=== PATIENT | female | born 1945 | race Hispanic/Latino ===

== ENCOUNTER 2017-09-14 16:37 | Observation (INO) | payer MEDICARE, OTHER ==
--- OUTSIDE RECORDS SUMMARY | 2017-09-14 16:38 | XMS REPORT | Clinical Summary ---
:1945 Author Organization [facility] Address [address] [address] Care Team Providers Name Role Phone Asked, No Pcp Primary Care Provider Unavailable Allergies Not on File Current Medications Not on file Active Problems Not on file Social History Tobacco Use Types Packs/Day Years Used Date Never Assessed Sex Assigned at Date Recorded Not on file Last Filed Vital Signs Not on file Plan of Treatment Health Maintenance Due Date Last Done Comments COLONOSCOPY 1997 MAMMOGRAM 1997 ZOSTER VACCINE 2007 PNEUMOCOCCAL POLYSACCHARIDE VACCINE AGE 65 AND OVER 2012 PNEUMOCOCCAL-13 2012 INFLUENZA VACCINE 01/25/2017 05/07/2008 Results Not on fileafter 09/13/2016 Insurance Payer Benefit Plan / Group Subscriber ID Type Phone Address UHC MEDICARE AARP MEDICARE COMPLETE [facility] xxxxxxxxx O Work: Gustavo AZEB DOOLEY [phone] [phone] Home:
--- OUTSIDE RECORDS SUMMARY | 2017-09-14 16:39 | XMS REPORT ---
:1945 Author Organization [facility] Address [address] [place] [address] Dr. Gao [address] [place] [address] Care Team Providers Name Role Phone LALI MONTEJO Unavailable Unavailable INDIGO RAMOS Unavailable Unavailable Problems This patient has no known problems. Allergies, Adverse Reactions, Alerts This patient has no known allergies or adverse reactions. Medications This patient has no known medications. Results Test Description Test Time Test Comments Text Results Atomic Results Result Comments T4 2017-09-14 14:33:00 Test Item Value Reference Range Comments T4 TOTAL (BEAKER) (test djjt=828) 4.6 ug/dL 4.9-11.7 [id number] 14:33:00 Test Item Value Reference Range Comments THYROID STIMULATING HORMONE (BEAKER) (test 3.68 uIU/mL 0.35-4.94 kxms=355) [id number] 14:33:00 Test Item Value Reference Range Comments T3 TOTAL (BEAKER) (test woba=966) 51 ng/dL 48-159 VITAMIN D, [id number] 12:10:00 Test Item Value Reference Range Comments VITAMIN D 25-OH (BEAKER) (test gxnk=7713) 4.6 ng/mL 6.6-49.9 Effective 04/06/2017: Reference Range ChangeNew: 6.6-49.9 ng/mL Previous: 13.0 -47.8 ng/mLRecommended Vitamin D Target Range: 30.0-40.0 ng/mLCRYPTOCOCCAL [id number] 12:09:00 Test Item Value Reference Range Comments CRYPTOCOCCAL ANTIGEN, SERUM (BEAKER) (test Negative Negative, Interference joel=9534) [id number] 12:08:00 Test Item Value Reference Range Comments RPR SCREEN (BEAKER) (test zfdp=576) Nonreactive Nonreactive CARCINOEMBRYONIC ANTIGEN (CEA)2017-09-14 12:01:00 Test Item Value Reference Range Comments CARCINOEMBRYONIC ANTIGEN (BEAKER) (test ovbv=737) 12.7 ng/mL 0.0-5.0 [id number] 12:01:00 Test Item Value Reference Range Comments FERRITIN (BEAKER) (test ckzu=736) 217 ng/mL 5-275 BLOOD GAS, [id number] 10:35:00 Test Item Value Reference Range Comments PH ARTERIAL (BEAKER) (test onnn=565) 7.49 7.35-7.45 PCO2 ARTERIAL (BEAKER) (test smsz=537) 26 mmHg 35-45 PO2 ARTERIAL (BEAKER) (test bvtf=523) 121 mmHg 80-90 O2 SATURATION ARTERIAL (BEAKER) (test tccv=542) 98.7 % 96.0-97.0 HCO3 ARTERIAL (BEAKER) (test fvbj=261) 20 mmol/L 21-29 BASE EXCESS ARTERIAL (BEAKER) (test gcbv=995) -2.9 mmol/L -2.0-3.0 PATIENT TEMPERATURE (BEAKER) (test qwvo=3357) 37.0 C FIO2 (BEAKER) (test auiz=2035) 21.0 % COMPREHENSIVE METABOLIC [id number] 10:31:00 Test Item Value Reference Range Comments TOTAL PROTEIN (BEAKER) 7.4 gm/dL 6.0-8.3 (test qhym=390) ALBUMIN (BEAKER) (test 2.2 g/dL 3.5-5.0 bmuj=0693) ALKALINE PHOSPHATASE 72 U/L 40-150 (BEAKER) (test oofv=203) BILIRUBIN TOTAL (BEAKER) 1.2 mg/dL 0.2-1.2 (test grnx=381) SODIUM (BEAKER) (test 133 meq/L 136-145 pfsb=269) POTASSIUM (BEAKER) (test 4.8 meq/L 3.5-5.1 tptp=541) CHLORIDE (BEAKER) (test 105 meq/L 98-107 icey=913) CO2 (BEAKER) (test 18 meq/L 22-29 jytn=484) BLOOD UREA NITROGEN 21 mg/dL 7-21 (BEAKER) (test xbzf=926) CREATININE (BEAKER) (test 1.86 mg/dL 0.57-1.25 lcnc=858) GLUCOSE RANDOM (BEAKER) 87 mg/dL 70-105 (test dgjt=029) CALCIUM (BEAKER) (test 8.2 mg/dL 8.4-10.2 hfka=888) AST (SGOT) (BEAKER) (test 40 U/L 5-34 teij=911) ALT (SGPT) (BEAKER) (test 14 U/L 6-55 vszu=326) EGFR (BEAKER) (test 27 mL/min/1.73 sq m ESTIMATED GFR IS NOT xsdv=0621) ACCURATE CREATININE CLEARANCE IN PREDICTING GLOMERULAR FILTRATION RATE. ESTIMATED GFR IS NOT APPLICABLE FOR DIALYSIS PATIENTS. [id number] 10:24:00 Test Item Value Reference Range Comments TRANSFERRIN (BEAKER) (test yddu=575) 97 mg/dL 174-382 IRON, TIBC, % SAT. (WITHOUT FERRITIN)2017-09-14 10:24:00 Test Item Value Reference Range Comments IRON (BEAKER) (test bskl=001) 70 ug/dL 40-160 TOTAL IRON BINDING CAPACITY (BEAKER) (test 121 ug/dL 250-450 jnct=716) IRON % SATURATION (2) (BEAKER) (test pkhr=1020) 58 % 20-55 [id number] 10:22:00 Test Item Value Reference Range Comments ETHANOL (BEAKER) (test gcfq=853) < mg/dL <=10 URIC [id number] 10:15:00 Test Item Value Reference Range Comments URIC ACID (BEAKER) (test jobo=248) 14.8 mg/dL 2.6-7.2 [id number] 10:15:00 Test Item Value Reference Range Comments MAGNESIUM (BEAKER) (test ucgd=244) 1.7 mg/dL 1.6-2.6 [id number] 10:15:00 Test Item Value Reference Range Comments PHOSPHORUS (BEAKER) (test lkgg=844) 3.3 mg/dL 2.3-4.7 LIPID [id number] 10:15:00 Test Item Value Reference Range Comments TRIGLYCERIDES (BEAKER) (test hvxe=284) 64 mg/dL CHOLESTEROL (BEAKER) (test yial=984) 87 mg/dL HDL CHOLESTEROL (BEAKER) (test ibff=558) 20 mg/dL LDL CHOLESTEROL CALCULATED (BEAKER) (test ffox=477) 54 mg/dL Triglyceride Reference Range: Low Risk <150 Borderline 150- 199 High Risk 200-499 Very High Risk >=500Cholesterol Reference Range: Low Risk <200 Borderline 200-239 High Risk > 240HDL Cholesterol Reference Range: Low Risk >=60 High Risk <40LDL Cholesterol Reference Range: Optimal <100 Near Optimal 100-129 Borderline 130-159 High 160-189 Very High >=190BILIRUBIN, [id number] 10:15:00 Test Item Value Reference Range Comments BILIRUBIN DIRECT (BEAKER) (test qaaj=760) 0.7 mg/dL 0.1-0.5 GAMMA GLUTAMYL TRANSFERASE (GGT)2017-09-14 10:15:00 Test Item Value Reference Range Comments GAMMA GLUTAMYL TRANSFERASE (BEAKER) (test xzzd=550) 24 U/L 9-64 HEPATITIS B CORE ANTIBODY, [id number] 10:11:00 Test Item Value Reference Range Comments HEPATITIS B CORE IGM ANTIBODY (BEAKER) (test Nonreactive Nonreactive wuxf=339) HEPATITIS A ANTIBODY, [id number] 10:11:00 Test Item Value Reference Range Comments HEPATITIS A IGM ANTIBODY (BEAKER) (test Nonreactive Nonreactive oqjj=999) HIV-1 ANTIGEN WITH HIV-1/2 [id number] 10:11:00 Test Item Value Reference Range Comments HIV-1 ANTIGEN WITH HIV 1\T\2 ANTIBODY (2) Nonreactive Nonreactive (BEAKER) (test adwv=6186) [id number] 09:35:00 Test Item Value Reference Range Comments FIBRINOGEN LEVEL (BEAKER) (test zldn=631) 130 mg/dl 225-434 CALCIUM, [id number] 09:32:00 Test Item Value Reference Range Comments CALCIUM IONIZED (BEAKER) (test hehb=939) 0.99 mmol/L 1.12-1.27 PH, BLOOD (BEAKER) (test rtdd=8535) 7.40 PROTHROMBIN TIME/[id number] 09:30:00 Test Item Value Reference Range Comments PROTIME (BEAKER) (test zmrt=893) 20.3 seconds 11.7-14.7 INR (BEAKER) (test ywpn=407) 1.7 <=5.9 RECOMMENDED COUMADIN/WARFARIN INR THERAPY RANGESSTANDARD DOSE: 2.0 - 3.0 Includes: PROPHYLAXIS forvenous thrombosis, systemic embolization; TREATMENT for venous thrombosis and/or pulmonary embolus.HIGH RISK: Target INR is 2.5-3.5 for patients with mechanical heart valves.[id number] 09:30:00 Test Item Value Reference Range Comments PARTIAL THROMBOPLASTIN TIME (BEAKER) (test 39.5 seconds 22.5-36.0 tzzv=512) CBC W/PLT COUNT & AUTO [id number] 09:29:00 Test Item Value Reference Range Comments WHITE BLOOD CELL COUNT (BEAKER) (test afpl=704) 4.7 K/ L 3.5-10.5 RED BLOOD CELL COUNT (BEAKER) (test ljli=568) 2.46 M/ L 3.93-5.22 HEMOGLOBIN (BEAKER) (test jquf=799) 8.2 GM/DL 11.2-15.7 HEMATOCRIT (BEAKER) (test lrve=339) 23.9 % 34.1-44.9 MEAN CORPUSCULAR VOLUME (BEAKER) (test ufmu=105) 97.2 fL 79.4-94.8 MEAN CORPUSCULAR HEMOGLOBIN (BEAKER) (test 33.3 pg 25.6-32.2 ixub=357) MEAN CORPUSCULAR HEMOGLOBIN CONC (BEAKER) (test 34.3 GM/DL 32.2-35.5 ecyg=914) RED CELL DISTRIBUTION WIDTH (BEAKER) (test 19.0 % 11.7-14.4 aztb=495) PLATELET COUNT (BEAKER) (test yclz=855) 136 K/CU MM 150-450 MEAN PLATELET VOLUME (BEAKER) (test yqnf=162) 11.3 fL 9.4-12.3 NUCLEATED RED BLOOD CELLS (BEAKER) (test 0 /100 WBC 0-0 qwau=776) NEUTROPHILS RELATIVE PERCENT (BEAKER) (test 56 % amiw=042) LYMPHOCYTES RELATIVE PERCENT (BEAKER) (test 32 % pevu=942) MONOCYTES RELATIVE PERCENT (BEAKER) (test 9 % njap=370) EOSINOPHILS RELATIVE PERCENT (BEAKER) (test 2 % tyrp=598) BASOPHILS RELATIVE PERCENT (BEAKER) (test 1 % ixyz=751) NEUTROPHILS ABSOLUTE COUNT (BEAKER) (test 2.64 K/ L 1.56-6.13 jsit=977) LYMPHOCYTES ABSOLUTE COUNT (BEAKER) (test 1.48 K/ L 1.18-3.74 jmxj=047) MONOCYTES ABSOLUTE COUNT (BEAKER) (test 0.40 K/ L 0.24-0.36 kcnl=679) EOSINOPHILS ABSOLUTE COUNT (BEAKER) (test 0.10 K/ L 0.04-0.36 rfxa=334) BASOPHILS ABSOLUTE COUNT (BEAKER) (test 0.06 K/ L 0.01-0.08 upox=859) IMMATURE GRANULOCYTES-RELATIVE PERCENT (BEAKER) 0 % 0-1 (test rjuk=8433) JEFF TITER AND [id number] 14:15:00 Test Item Value Reference Range Comments JEFF TITER (BEAKER) (test zhsl=4952) >=:2560 JEFF PATTERN (BEAKER) (test gxer=2886) Homogeneous ANTI-NUCLEAR ANTIBODY (JEFF)2017-08-18 14:14:00 Test Item Value Reference Range Comments ANTI-NUCLEAR ANTIBODY (JEFF) (BEAKER) (test Positive Negative wmiv=737) HEPATITIS B SURFACE [id number] 19:32:00 Test Item Value Reference Range Comments HEPATITIS B SURFACE ANTIBODY (BEAKER) (test < mIU/mL <8.0 almm=980) HEPATITIS A ANTIBODY, [id number] 19:32:00 Test Item Value Reference Range Comments HEPATITIS A IGG ANTIBODY (BEAKER) (test oviq=4487) Reactive Nonreactive HEPATITIS B CORE ANTIBODY, [id number] 19:31:00 Test Item Value Reference Range Comments HEPATITIS B CORE TOTAL ANTIBODY (BEAKER) (test Nonreactive Nonreactive zgzj=266) HEPATITIS B SURFACE [id number] 19:28:00 Test Item Value Reference Range Comments HEPATITIS B SURFACE ANTIGEN (2) (BEAKER) (test Nonreactive Nonreactive wnit=3182) HEPATITIS C [id number] 19:28:00 Test Item Value Reference Range Comments HEPATITIS C ANTIBODY (BEAKER) (test ldpp=551) Nonreactive Nonreactive IRON, TIBC, % SAT. (WITHOUT FERRITIN)2017-08-17 19:20:00 Test Item Value Reference Range Comments IRON (BEAKER) (test eoan=866) 51 ug/dL 40-160 TOTAL IRON BINDING CAPACITY (BEAKER) (test 118 ug/dL 250-450 zmcb=284) IRON % SATURATION (2) (BEAKER) (test tpxu=9604) 43 % 20-55 ALPHA FETOPROTEIN (AFP), TUMOR [id number] 17:53:00 Test Item Value Reference Range Comments ALPHA-FETOPROTEIN (BEAKER) (test vvgn=0954) < ng/mL <10.0 [id number] 17:49:00 Test Item Value Reference Range Comments FERRITIN (BEAKER) (test jmkx=614) 167 ng/mL 5-275 COMPREHENSIVE METABOLIC [id number] 17:31:00 Test Item Value Reference Range Comments TOTAL PROTEIN (BEAKER) 7.5 gm/dL 6.0-8.3 (test tqut=418) ALBUMIN (BEAKER) (test 2.1 g/dL 3.5-5.0 wqal=0651) ALKALINE PHOSPHATASE 86 U/L 40-150 (BEAKER) (test tajf=620) BILIRUBIN TOTAL (BEAKER) 1.4 mg/dL 0.2-1.2 (test ealn=984) SODIUM (BEAKER) (test 135 meq/L 136-145 cutg=389) POTASSIUM (BEAKER) (test 4.5 meq/L 3.5-5.1 dlrl=820) CHLORIDE (BEAKER) (test 110 meq/L 98-107 wlxk=856) CO2 (BEAKER) (test 17 meq/L 22-29 kdut=010) BLOOD UREA NITROGEN 22 mg/dL 7-21 (BEAKER) (test suwe=108) CREATININE (BEAKER) (test 1.48 mg/dL 0.57-1.25 xjxc=878) GLUCOSE RANDOM (BEAKER) 76 mg/dL 70-105 (test rhxj=677) CALCIUM (BEAKER) (test 7.7 mg/dL 8.4-10.2 svsl=838) AST (SGOT) (BEAKER) (test 39 U/L 5-34 wnsb=181) ALT (SGPT) (BEAKER) (test 15 U/L 6-55 trrr=122) EGFR (BEAKER) (test 35 mL/min/1.73 sq m ESTIMATED GFR IS NOT ylvf=2644) ACCURATE CREATININE CLEARANCE IN PREDICTING GLOMERULAR FILTRATION RATE. ESTIMATED GFR IS NOT APPLICABLE FOR DIALYSIS PATIENTS. BILIRUBIN, [id number] 17:30:00 Test Item Value Reference Range Comments BILIRUBIN DIRECT (BEAKER) (test kbmr=900) 0.8 mg/dL 0.1-0.5 [id number] 17:29:00 Test Item Value Reference Range Comments ALPHA-1 ANTITRYPSIN (BEAKER) (test esbq=882) 117.10 mg/dL 90.00-200.00 PROTHROMBIN TIME/[id number] 17:25:00 Test Item Value Reference Range Comments PROTIME (BEAKER) (test qcvp=406) 22.0 seconds 11.7-14.7 INR (BEAKER) (test ybtz=384) 1.9 <=5.9 RECOMMENDED COUMADIN/WARFARIN INR THERAPY RANGESSTANDARD DOSE: 2.0 - 3.0 Includes: PROPHYLAXIS forvenous thrombosis, systemic embolization; TREATMENT for venous thrombosis and/or pulmonary embolus.HIGH RISK: Target INR is 2.5-3.5 for patients with mechanical heart valves.CBC W/PLT COUNT & AUTO [id number] 17:16:00 Test Item Value Reference Range Comments WHITE BLOOD CELL COUNT (BEAKER) (test rxzg=517) 8.5 K/ L 3.5-10.5 RED BLOOD CELL COUNT (BEAKER) (test wdpv=774) 2.82 M/ L 3.93-5.22 HEMOGLOBIN (BEAKER) (test gsni=429) 9.1 GM/DL 11.2-15.7 HEMATOCRIT (BEAKER) (test uumf=641) 26.8 % 34.1-44.9 MEAN CORPUSCULAR VOLUME (BEAKER) (test pnpo=997) 95.0 fL 79.4-94.8 MEAN CORPUSCULAR HEMOGLOBIN (BEAKER) (test 32.3 pg 25.6-32.2 bauq=779) MEAN CORPUSCULAR HEMOGLOBIN CONC (BEAKER) (test 34.0 GM/DL 32.2-35.5 kdcw=881) RED CELL DISTRIBUTION WIDTH (BEAKER) (test 18.5 % 11.7-14.4 ymrh=742) PLATELET COUNT (BEAKER) (test hwzm=196) 159 K/CU MM 150-450 MEAN PLATELET VOLUME (BEAKER) (test pohh=625) 11.0 fL 9.4-12.3 NUCLEATED RED BLOOD CELLS (BEAKER) (test 0 /100 WBC 0-0 dbfj=218) NEUTROPHILS RELATIVE PERCENT (BEAKER) (test 76 % kcrl=276) LYMPHOCYTES RELATIVE PERCENT (BEAKER) (test 16 % sjbi=380) MONOCYTES RELATIVE PERCENT (BEAKER) (test 5 % rekw=170) EOSINOPHILS RELATIVE PERCENT (BEAKER) (test 2 % vruw=997) BASOPHILS RELATIVE PERCENT (BEAKER) (test 1 % ubsc=385) NEUTROPHILS ABSOLUTE COUNT (BEAKER) (test 6.45 K/ L 1.56-6.13 qkpy=867) LYMPHOCYTES ABSOLUTE COUNT (BEAKER) (test 1.34 K/ L 1.18-3.74 gbut=845) MONOCYTES ABSOLUTE COUNT (BEAKER) (test 0.44 K/ L 0.24-0.36 olpy=281) EOSINOPHILS ABSOLUTE COUNT (BEAKER) (test 0.16 K/ L 0.04-0.36 lhjf=706) BASOPHILS ABSOLUTE COUNT (BEAKER) (test 0.04 K/ L 0.01-0.08 cnpq=497) IMMATURE GRANULOCYTES-RELATIVE PERCENT (BEAKER) 0 % 0-1 (test eqzc=8443) MR, ABDOMEN, [id number] 15:10:00Referring: Dr. Magiu White PROTOCOLFINAL REPORT TECHNIQUE: MRI of the abdomen WITHOUT and WITH intravenous contrast. INDICATION: 72-year-old woman with cirrhosis. COMPARISON: None. FINDINGS: LOWER THORAX: Unremarkable. LIVER: Nodular cirrhotic liver. No focal hepatic lesions. BILIARY: Cholelithiasis without gallbladder wall thickening. No biliary ductal dilatation or filling defect.SPLEEN: No splenomegaly.PANCREAS: No focal masses or ductal dilatation. ADRENALS: No adrenal nodules.KIDNEYS/URETERS: No hydronephrosis or solid mass lesions. Subcentimeter right renal cyst. PERITONEUM/RETROPERITONEUM: Large volumeascites.LYMPH NODES: No lymphadenopathy.VESSELS: Nonocclusive thrombus in the main portal vein. Superior mesenteric vein is patent. Diminutive splenic vein. Hepatic veins are patent. Suspected small recanalized umbilical vein. GI TRACT: The proximal stomach is mildly distended with food debris. No bowel wall thickening or obstruction. BONES AND SOFT TISSUES: Degenerative changes of the visualized spine. IMPRESSION:Cirrhosis with portal hypertension and large volume ascites. No suspicious liver lesions. 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 Cholelithiasis. Signed: Massiel Hardy MDReport Verified Date/Time : 07/25/2017 15:10:56 Reading Location: [facility] C013Y CT Body Reading Room POCT- [id number] 11:04:00 Test Item Value Reference Range Comments POC-CREATININE (BEAKER) 1.2 mg/dL 0.6-1.3 TESTED AT [address] (test yuxz=3354) [facility] [address] POC-EGFR (BEAKER) (test 44 mL/min/1.73M2 kshf=5777)
--- NOTE | 2017-09-14 18:21 | RAD REPORT ---
EXAM DESCRIPTION: RAD - Chest Single View - 09/14/2017 6:15 pm CLINICAL HISTORY: Chest pain. COMPARISON: 09/09/2017 FINDINGS: Portable technique limits examination quality. The lungs are grossly clear. The heart is normal in size. No displaced fractures.Aortic atheroscleros is noted. IMPRESSION: No acute intrathoracic process suspected.
[2017-09-14 18:26] LABS: Urine Blood NEGATIVE (NEG); Urine Glucose NEGATIVE (NEG); Urine Protein NEGATIVE (NEG); Urine Specific Gravity 1.015 (1.005-1.030); Urine pH 7.5 (5.0-7.0)
[2017-09-14 18:52] LABS: Absolute Lymphocytes (CBC) 1.9 K/uL (0.7-4.9); Absolute Monocytes 0.5 K/uL (0.1-1.3); Absolute Neutrophil 3.2 K/uL (1.8-8.0); Basophils % 1.2 % (0-1.3); Hematocrit 27.2 % (36.0-45.0); Lymphocytes % 33.2 % (15.3-44.8); MCH 33.7 pg (27.0-35.0); MCV 99.2 fL (80-100); MPV 9.3 fL (7.6-11.3); Monocytes % 9.2 % (3.3-12.3); Protime INR 1.39; RBC Red Blood Cell Count 2.74 M/uL (3.86-4.86)
[2017-09-14 18:59] LABS: Bilirubin Direct 0.5 mg/dL (0-0.2); Bilirubin Total 1.5 mg/dL (0.3-1.2); Magnesium 1.9 mg/dL (1.8-2.5); Potassium 4.9 mEq/L (3.6-5.0); Protein, Total 7.5 g/dL (6.0-8.3)
[2017-09-14 19:23] LABS: Albumin 2.2 g/dL (3.2-5.5)
--- NOTE | 2017-09-14 19:27 | EDPHYS ---
Physician Documentation [facility] Name: Sharri Wyman Age: 72 yrs Sex: Female : 1945 Arrival Date: 09/14/2017 Time: 16:49 Bed 28 Private MD: ED Physician Quincy Decker HPI: 09/14 18:01 This 72 yrs old Female presents to ER via EMS with complaints of weakness. snw 18:01 The patient presents to the emergency department with weakness of the entire body, snw generalized weakness. Onset: The symptoms/episode began/occurred gradually, and became worse today. Context: occurred at home, occurred while the patient was pt was with family today giving blood at [facility] in [place] re: pending liver transplant. Associated signs and symptoms: Pertinent positives: weakness. Severity of symptoms: At their worst the symptoms were moderate. Patient's baseline: The patient has a previous history of liver and stomach problems, yeast esophagitis, gave lots of blood samples today to finalize liver transplant. Current symptoms: decreased level of consciousness. The patient has experienced similar episodes in the past. The patient has been recently seen by a physician: with similar presenting complaints. pt recently hospitalized for increased ammonia levels. Historical: - Allergies: 16:52 Bactrim; kb1 16:52 Cipro; kb1 16:52 Levaquin; kb1 - Home Meds: 16:52 Ferrous Sulfate Oral [Active]; lactulose 10 ml three times a day [Active]; Lasix Oral kb1 [Active]; Nexium Oral [Active]; spiraldactone [Active]; Vitamin B-12 Oral [Active]; - PMHx: 16:52 acid reflux; Cirrhosis; hx of stomace cancer; stomach cancer; UTI; kb1 - Immunization history:: Pneumococcal vaccine is up to date, Flu vaccine is up to date. - Social history:: Smoking status: Patient/guardian denies using tobacco. ROS: 18:06 Constitutional: Negative for fever, chills, and weight loss, Eyes: Negative for injury, snw pain, redness, and discharge, ENT: Negative for injury, pain, and discharge, Neck: Negative for injury, pain, and swelling, Cardiovascular: Negative for chest pain, palpitations, and edema, Respiratory: Negative for shortness of breath, cough, wheezing, and pleuritic chest pain, Abdomen/GI: Negative for abdominal pain, nausea, vomiting, diarrhea, and constipation, Back: Negative for injury and pain, : Negative for injury, bleeding, discharge, and swelling, MS/Extremity: Negative for injury and deformity, Skin: Negative for injury, rash, and discoloration. 18:06 Neuro: Positive for weakness. Exam: 18:06 Head/Face: Normocephalic, atraumatic. Eyes: Pupils equal round and reactive to light, snw extra-ocular motions intact. Lids and lashes normal. Conjunctiva and sclera are cteric and not injected. Cornea within normal limits. Periorbital areas with no swelling, redness, or edema. ENT: Nares patent. No nasal discharge, no septal abnormalities noted. Tympanic membranes are normal and external auditory canals are clear. Oropharynx with no redness, swelling, or masses, exudates, or evidence of obstruction, uvula midline. Mucous membranes moist. Neck: Trachea midline, no thyromegaly or masses palpated, and no cervical lymphadenopathy. Supple, full range of motion without nuchal rigidity, or vertebral point tenderness. No Meningismus. Chest/axilla: Normal chest wall appearance and motion. Nontender with no deformity. No lesions are appreciated. 18:06 Respiratory: Lungs have equal breath sounds bilaterally, clear to auscultation and percussion. No rales, rhonchi or wheezes noted. No increased work of breathing, no retractions or nasal flaring. 18:06 Back: No spinal tenderness. No costovertebral tenderness. Full range of motion. MS/ Extremity: Pulses equal, no cyanosis. Neurovascular intact. Full, normal range of motion. 18:06 Constitutional: The patient appears frail, listless, uncomfortable. 18:06 Cardiovascular: Rate: bradycardic, Rhythm: irregular, Pulses: weak, Heart sounds: normal, Edema: is not appreciated. 18:06 Abdomen/GI: Inspection: distension, Bowel sounds: active, all quadrants. 18:06 Skin: Appearance: Color: jaundiced, Temperature: warm, ecchymosis, and are scattered. 18:06 Neuro: Orientation: to person, Mentation: responsive to voice seizure activity, is not displayed by the patient. Vital Signs: 16:52 BP 139 / 79; Pulse 67; Resp 20; Temp 97.8(O); Pulse Ox 100% on R/A; kb1 18:17 BP 131 / 74; Pulse 72; Resp 18; Pulse Ox 100% ; kb1 19:29 BP 137 / 76; Pulse 75; Resp 18; Pulse Ox 100% ; kb1 20:32 BP 148 / 76; Pulse 81; Resp 16; Pulse Ox 100% ; kb1 21:00 BP 131 / 81; Pulse 77; Resp 18; Pulse Ox 100% ; kb1 22:25 BP 117 / 66; Pulse 64; Resp 18; Pulse Ox 100% ; kb1 MDM: 17:19 Patient medically screened. snw 19:22 Data reviewed: vital signs, nurses notes. Data interpreted: Pulse oximetry: on room air snw is 100 %. Interpretation: normal. Counseling: I had a detailed discussion with the patient and/or guardian regarding: the historical points, exam findings, and any diagnostic results supporting the discharge/admit diagnosis, lab results, radiology results, the need for further work-up and treatment in the hospital. Physician consultation: Leeroy Ma MD was called at 19:23, was contacted at 19:23, regarding admission, to the telemetry unit. 09/14 17:10 Order name: Basic Metabolic Panel [facility] 09/14 17:10 Order name: BNP [facility] 09/14 17:10 Order name: CBC with Diff [facility] 09/14 17:10 Order name: Ckmb [facility] 09/14 17:10 Order name: CPK [facility] 09/14 17:10 Order name: LFT's [facility] 09/14 17:10 Order name: Magnesium [facility] 09/14 17:10 Order name: PT-INR [facility] 09/14 17:10 Order name: Ptt, Activated [facility] 09/14 17:10 Order name: Troponin (emerg Dept Use Only) [facility] 09/14 17:10 Order name: AMMONIA [facility] 09/14 17:26 Order name: Blood Culture Adult (2) [facility] 09/14 17:26 Order name: Urine Culture [facility] 09/14 18:17 Order name: Urine Dipstick--Ancillary (enter results) ms 09/14 17:10 Order name: XRAY Chest (1 view) [facility] 09/14 17:10 Order name: EKG; Complete Time: 17:11 [facility] 09/14 18:22 Order name: RAD; Complete Time: 18:27 EDMS 09/14 18:26 Order name: Urine Dipstick-Ancillary; Complete Time: 18:27 EDMS 09/14 18:53 Order name: Protime (+INR); Complete Time: 18:55 EDMS 09/14 18:53 Order name: PTT, Activated Partial Thromb; Complete Time: 18:55 EDMS 09/14 18:55 Order name: CBC with Automated Diff; Complete Time: 18:56 EDMS 09/14 19:00 Order name: Basic Metabolic Panel; Complete Time: 19:26 EDMS 09/14 19:00 Order name: Liver (Hepatic) Function; Complete Time: 19:26 EDMS 09/14 19:00 Order name: Creatine Phosphokinase; Complete Time: 19:26 EDMS 09/14 19:00 Order name: Magnesium; Complete Time: 19:26 EDMS 09/14 19:01 Order name: Troponin (Emerg Dept Use Only); Complete Time: 19:04 EDMS 09/14 19:03 Order name: Ammonia; Complete Time: 19:04 EDMS 09/14 19:16 Order name: BNP B-Type Natriuretic Peptide; Complete Time: 19:18 EDMS 09/14 19:19 Order name: CKMB Creatine Kinase MB; Complete Time: 19:26 EDMS 09/14 17:10 Order name: Cardiac monitoring; Complete Time: 18:19 snw 09/14 17:10 Order name: EKG - Nurse/Tech; Complete Time: 18:19 snw 09/14 17:10 Order name: IV Saline Lock; Complete Time: 18:19 snw 09/14 17:10 Order name: Labs collected and sent; Complete Time: 18:30 snw 09/14 17:10 Order name: O2 Per Protocol; Complete Time: 18:20 snw 09/14 17:10 Order name: O2 Sat Monitoring; Complete Time: 18:20 snw 09/14 17:10 Order name: Urine Dipstick-Ancillary (obtain specimen); Complete Time: 18:20 snw 09/14 17:10 Order name: Millan; Complete Time: 18:19 snw 09/14 17:11 Order name: Misc. Order: pacer pads in place please; Complete Time: 18:30 snw Administered Medications: 20:33 Drug: Lactulose 30 grams Volume: 45 ml; Route: PO; kb1 Disposition: 09/15 07:20 Co-signature as Attending Physician, Quincy Decker MD I agree with the assessment and kdr plan of care. Disposition: 09/14/17 19:26 Hospitalization ordered by Leeroy Ma for Observation. Preliminary diagnosis are Other cirrhosis of liver, HYPERAMMONEMIA. - Bed requested for Telemetry/MedSurg (observation). - Status is Observation. kb1 - Condition is Stable. - Problem is an acute exacerbation. - Symptoms have worsened. UTI on Admission? No Signatures: Dispatcher [employer] Aline Middleton, RN RN Quincy Mitchell MD MD [facility] Ivonne Gilliam, RESIDENTIAL REAL ESTATE AGENT-C RESIDENTIAL REAL ESTATE AGENT-Alysa Butler, RN RN kb1
--- NOTE | 2017-09-14 19:27 | ER ---
Nurse's Notes [facility] Name: Sharri Wyman Age: 72 yrs Sex: Female : 1945 Arrival Date: 09/14/2017 Time: 16:49 Bed 28 Private MD: Diagnosis: Other cirrhosis of liver;HYPERAMMONEMIA Presentation: 09/14 16:49 Presenting complaint: EMS states: complains of generalized weakness after having blood kb1 tubes drawn at PCP office. Transition of care: patient was not received from another setting of care. Onset of symptoms was September 14, 2017. Care prior to arrival: Glucose check: 115. 16:49 Method Of Arrival: EMS: [facility] kb1 16:49 Acuity: DARRION 3 kb1 Triage Assessment: 16:52 General: Appears in no apparent distress. Behavior is cooperative. Pain: Denies pain. kb1 EENT: No signs and/or symptoms were reported regarding the EENT system. Neuro: Level of Consciousness is awake, alert, obeys commands, Oriented to person, place, time, situation, slow to answer questions. Cardiovascular: Patient's skin is warm and dry. Pulses are all present. Respiratory: Respiratory effort is even, unlabored, Respiratory pattern is regular, symmetrical. GI: Abdomen is distended. : No signs and/or symptoms were reported regarding the genitourinary system. Derm: Skin is jaundiced. Musculoskeletal: Reports weakness in general. Historical: - Allergies: 16:52 Bactrim; kb1 16:52 Cipro; kb1 16:52 Levaquin; kb1 - Home Meds: 16:52 Ferrous Sulfate Oral [Active]; lactulose 10 ml three times a day [Active]; Lasix Oral kb1 [Active]; Nexium Oral [Active]; spiraldactone [Active]; Vitamin B-12 Oral [Active]; - PMHx: 16:52 acid reflux; Cirrhosis; hx of stomace cancer; stomach cancer; UTI; kb1 - Immunization history:: Pneumococcal vaccine is up to date, Flu vaccine is up to date. - Social history:: Smoking status: Patient/guardian denies using tobacco. Screenin:56 Abuse screen: Denies threats or abuse. Nutritional screening: No deficits noted. kb1 Tuberculosis screening: No symptoms or risk factors identified. Fall Risk Gait- Weak (10 pts.). Assessment: 16:56 Reassessment: No changes from previously documented assessment. kb1 18:17 Reassessment: Patient appears in no apparent distress at this time. Patient and/or kb1 family updated on plan of care and expected duration. Pain level reassessed. resting comfortably, family at bedside. 19:28 Reassessment: Patient appears in no apparent distress at this time. Patient and/or kb1 family updated on plan of care and expected duration. Pain level reassessed. Patient is alert, oriented x 3, equal unlabored respirations, skin warm/dry/pink. 20:31 Reassessment: Patient appears in no apparent distress at this time. Patient and/or kb1 family updated on plan of care and expected duration. Pain level reassessed. Pt resting when nurse entered room, family at bedside. 21:30 Reassessment: Patient appears in no apparent distress at this time. Patient and/or kb1 family updated on plan of care and expected duration. Pain level reassessed. Patient is alert, oriented x 3, equal unlabored respirations, skin warm/dry/pink. 22:24 Reassessment: Patient appears in no apparent distress at this time. Patient and/or kb1 family updated on plan of care and expected duration. Pain level reassessed. Patient is alert, oriented x 3, equal unlabored respirations, skin warm/dry/pink. Vital Signs: 16:52 BP 139 / 79; Pulse 67; Resp 20; Temp 97.8(O); Pulse Ox 100% on R/A; kb1 18:17 BP 131 / 74; Pulse 72; Resp 18; Pulse Ox 100% ; kb1 19:29 BP 137 / 76; Pulse 75; Resp 18; Pulse Ox 100% ; kb1 20:32 BP 148 / 76; Pulse 81; Resp 16; Pulse Ox 100% ; kb1 21:00 BP 131 / 81; Pulse 77; Resp 18; Pulse Ox 100% ; kb1 22:25 BP 117 / 66; Pulse 64; Resp 18; Pulse Ox 100% ; kb1 ED Course: 16:49 Patient arrived in ED. kb1 16:50 Triage completed. kb1 16:52 Arm band placed on left wrist. kb1 16:56 Patient has correct armband on for positive identification. Bed in low position. Call kb1 light in reach. Side rails up X2. ekg monitor tech on. Pulse ox on. NIBP on. 16:56 No provider procedures requiring assistance completed. kb1 17:08 Ivonne Gilliam FNP-C [facility]. snw 17:08 Quincy Decker MD is Attending Physician. snw 17:20 Pacer pads placed. kb1 17:27 Alysa Goldman, RN is Primary Nurse. kb1 17:35 EKG done, by sterile process tech. reviewed by Quincy Decker MD. tc 18:00 Inserted saline lock: 22 gauge in left forearm, using aseptic technique. kb1 18:10 Millan cath inserted, using sterile technique, 16 Fr., by me, balloon inflated, to kb1 gravity drainage, urine specimen collected. returned clear yellow urine. Patient tolerated well. 19:23 Leeroy Ma MD is Hospitalizing Provider. snw 22:24 Patient admitted, IV remains in place. kb1 Administered Medications: 20:33 Drug: Lactulose 30 grams Volume: 45 ml; Route: PO; kb1 Outcome: 19:26 Decision to Hospitalize by Provider. snw 22:26 Admitted to Tele accompanied by sotero, family with patient, via stretcher, room 216, kb1 Report called to Nathalia WHITLEY 22:26 Condition: stable 22:26 Instructed on the need for admit. 23:13 Patient left the ED. kb1 Signatures: Ivonne Gilliam FNP-C MAINTENANCE WORKER HOUSE TRAILER-Cs[employer] Sherice Rondon, plastic bubble packer EKG Ttc Alysa Goldman, RN RN kb1 Corrections: (The following items were deleted from the chart) 18:20 17:45 Pacer pads placed kb1 kb1 18:22 17:20 Millan cath inserted, using sterile technique, 16 Fr., by me, balloon inflated, to kb1 gravity drainage, urine specimen collected. returned clear yellow urine. Patient tolerated well. kb1 22:24 21:30 Reassessment: Patient appears in no apparent distress at this time. Patient kb1 and/or family updated on plan of care and expected duration. Pain level reassessed. Patient is alert, oriented x 3, equal unlabored respirations, skin warm/dry/pink. kb1
[2017-09-14] MEDS ORDERED: LACTULOSE 20 GM/30 ML UCUP ONE ×2 (19:37→20:23)
--- NOTE | 2017-09-14 21:05 | P.HP ---
Certification for Inpatient Patient admitted to: Observation With expected LOS: <2 Midnights Practitioner: I am a practitioner with admitting privileges, knowledge of patient current condition, hospital course, and medical plan of care. 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 After that, the patient become progressively weak, complaining of nausea, and her level of conscious gradually decrease. She did not take her regular medication today due to her doctor appointment. No history of fever, chills, SOB or chest pain. In ER Ammonia level was 145, WBC within normal limits. CXR shows no acute abnormalities, UA negative. Allergies levofloxacin [From Levaquin] Allergy (Mild, Verified 06/15/17 09:54) Anaphylaxis ciprofloxacin [From Cipro] Allergy (Unverified 08/10/17 21:20) Unknown sulfamethoxazole [From Bactrim] Allergy (Unverified 08/10/17 21:20) Unknown trimethoprim [From Bactrim] Allergy (Unverified 08/10/17 21:20) Unknown Home Medications: Rifaximin [Xifaxan] 550 mg PO BID 10/31/13 Lactulose [Cephulac*] 20 gm PO TID 12/04/15 Ferrous Sulfate [Ferrous Sulfate*] 325 mg PO DAILY 10/16/16 Furosemide [Lasix] 40 mg PO DAILY #30 tab 05/07/17 Spironolactone [Aldactone*] 25 mg PO DAILY #30 tab 05/07/17 - Past Medical/Surgical History Diabetic: No -: FATTY LIVER -: Chronic UTI -: Stomach Cancer -: encephalopathy -: cirrhosis -: encephalopathy -: Carotid Surgery -: Abdominal Surgery -: Breast Cyst Removal -: Hysterectomy -: appendectomy -: Cataract Surgery of right eye - Family History Mother Notes: OSTEOPOROSIS Father -: Hypertension, Diabetes Brother -: Stroke, Cancer Sister -: Liver disease - Social History Smoking Status: Never smoker Alcohol use: No CD- Drugs: No Caffeine use: Yes Review of Systems 10-point ROS is otherwise unremarkable Physical Examination - Physical Exam General: Alert, In no apparent distress, Confused HEENT: Atraumatic, PERRLA, Mucous membr. moist/pink, EOMI, Sclerae nonicteric Neck: Supple, 2+ carotid pulse no bruit, No LAD, Without JVD or thyroid abnormality Respiratory: Clear to auscultation bilaterally, Normal air movement Cardiovascular: Regular rate/rhythm, Normal S1 S2 Gastrointestinal: Normal bowel sounds, No tenderness Musculoskeletal: No tenderness Integumentary: No rashes Neurological: Normal speech, Normal strength at 5/5 x4 extr, Normal tone, Normal affect Lymphatics: No axilla or inguinal lymphadenopathy - Studies Laboratory Data (last 24 hrs) 09/14/17 18:25: PT 16.5 H, INR 1.39, APTT 40.3 H 09/14/17 18:25: WBC 5.9 D, Hgb 9.2 L, Hct 27.2 L, Plt Count 107 L D 09/14/17 18:25: B-Natriuretic Peptide 57 09/14/17 18:25: Sodium 134 L, Potassium 4.9, BUN 23 H, Creatinine 1.62 H, Glucose 84, Magnesium 1.9, Total Bilirubin 1.5 H, AST 49 H, ALT 16, Alkaline Phosphatase 71 Assessment and Plan - Problems (Diagnosis) (1) Acute on chronic renal failure Current Visit: Yes Status: Acute Qualifiers: Acute renal failure type: unspecified Chronic kidney disease stage: stage 3 (moderate) Qualified Code(s): N17.9 - Acute kidney failure, unspecified; N18.3 - Chronic kidney disease, stage 3 (moderate); N18.3 - Chronic kidney disease, stage 3 (moderate) (2) Hepatic encephalopathy Onset Date: 10/18/16 Current Visit: No Status: Acute (3) Cirrhosis of liver Onset Date: 02/06/15 Current Visit: No Status: Chronic Qualifiers: Hepatic cirrhosis type: other cirrhosis Qualified Code(s): K74.69 - Other cirrhosis of liver - Plan Ms Wyman will be admitted to the hospital due to hepatic encephalopathy. Will resume her Lactulose since she miss that medication today, also Rifaximin. The patient seems to be clinically dry, will give gentle IV fluids. Follow up with ammonia level in AM, and clinical progress. - Advance Directives Does patient have a Living Will: No Does patient have a Durable POA for Healthcare: Yes - Code Status/Comfort Care Code Status Assessed: Yes Code Status: Full Code
[2017-09-14] MEDS ORDERED: ONDANSETRON 4 MG/2 ML VIAL IV PRN (22:10)
[2017-09-14] MEDS ORDERED: LACTULOSE 20 GM/30 ML UCUP PO SCH (22:10)
[2017-09-14] MEDS: Rifaximin 550 MG Tab PO SCH (22:10)
[2017-09-15] MEDS: NA CHLORIDE 0.9% 1,000 ML IV SCH ×2 (00:22→12:21)
[2017-09-15] MEDS ORDERED: LACTULOSE 20 GM/30 ML UCUP PR SCH ×2 (00:50→01:43)
[2017-09-15] MEDS ORDERED: LACTULOSE 20 GM/30 ML UCUP ONE (02:37)
[2017-09-15 04:41] VITALS: O2SAT 93; BMI 17.9
[2017-09-15 06:37] LABS: Absolute Lymphocytes (CBC) 1.1 K/uL (0.7-4.9); Absolute Monocytes 0.5 K/uL (0.1-1.3); Absolute Neutrophil 3.2 K/uL (1.8-8.0); Basophils % 1.4 % (0-1.3); Eosinophils % 2.1 % (0-4.4); Hematocrit 26.4 % (36.0-45.0); Lymphocytes % 22.5 % (15.3-44.8); MCH 34.1 pg (27.0-35.0); MCV 99.8 fL (80-100); MPV 8.9 fL (7.6-11.3); Monocytes % 10.7 % (3.3-12.3); RBC Red Blood Cell Count 2.64 M/uL (3.86-4.86)
[2017-09-15 06:46] LABS: Albumin 2.1 g/dL (3.2-5.5); Bilirubin Total 1.4 mg/dL (0.3-1.2); Potassium 4.4 mEq/L (3.6-5.0); Protein, Total 6.9 g/dL (6.0-8.3)
--- NOTE | 2017-09-15 07:26 | EKG ---
Test Date: 2017-09-14 Test Time: 17:17:44 Public Safety Officer: JENNY MEASUREMENT RESULTS: Intervals: Rate: 65 [place]: 146 QRSD: 72 QT: 424 QTc: 440 [place]: P: 101 [place]: 146 QRS: -23 T: 26 INTERPRETIVE STATEMENTS: Normal sinus rhythm Low voltage QRS Possible Anterolateral infarct, age undetermined Abnormal ECG Compared to ECG 09/09/2017 12:57:58 Low QRS voltage now present Sinus bradycardia no longer present Myocardial infarct finding still present Electronically Signed On 09-15-17 07:25:43 CDT by Alex Lion
[2017-09-15] MEDS ORDERED: LACTULOSE IRR SCH ×2 (09:00)
[2017-09-15] MEDS ORDERED: SODIUM CHLORIDE 0.9% IRR SCH ×2 (09:00)
[2017-09-15] MEDS: Rifaximin 550 MG Tab PO SCH ×4 (09:00→20:54)
[2017-09-15] MEDS ORDERED: NACL 0.9% IRR SCH (09:00)
[2017-09-15] MEDS ORDERED: IRR IRR SCH (09:00)
[2017-09-15] MEDS: FERROUS SULFATE 325 MG TAB PO SCH ×3 (09:00→13:34)
[2017-09-15] MEDS: LACTULOSE 20 GM/30 ML UCUP PO SCH ×3 (09:01→20:53)
--- NOTE | 2017-09-15 11:57 | RAD REPORT ---
EXAM DESCRIPTION: RAD - Chest Single View - 09/15/2017 11:39 am CLINICAL HISTORY: Enteric tube placement. COMPARISON: None. FINDINGS: Portable technique limits examination quality. The tip of the enteric tube appears just entering the stomach. It is near the gastroesophageal juncti on.
--- NOTE | 2017-09-15 13:07 | RAD REPORT ---
EXAM DESCRIPTION: RAD - Chest Single View - 09/15/2017 12:56 pm CLINICAL HISTORY: Feeding tube placement or repositioning COMPARISON: KUB September 15 TECHNIQUE: AP portable chest image was obtained 1244 hours . FINDINGS: Feeding tube has been advanced. Tip is in the proximal body of the stomach. No abnormal be nd or kink in the tubing. IMPRESSION: Feeding tube has advanced with the tip now present in the proximal body of the stomach. No abnormal bend or kink of the tubing.
--- NOTE | 2017-09-15 13:44 | P.PN ---
Subjective Date of Service: 09/15/17 Primary Care Provider: Dr. Crenshaw; GI-Dr. Helton Chief Complaint: hepatic encephalopathy Subjective: Other (Patient had increased somnolence.) Physical Examination - Vital Signs Temperature: 97.6 F Blood Pressure: 131/58 Pulse: 64 Respirations: 17 Pulse Ox (%): 100 - Physical Exam General: Alert (Arousable to pain), Cachectic, Other (Increased somnolence) HEENT: Atraumatic, Scleral icterus Neck: Supple Respiratory: Clear to auscultation bilaterally, Normal air movement Cardiovascular: Normal pulses, Regular rate/rhythm Gastrointestinal: Normal bowel sounds, Soft and benign, Non-distended Musculoskeletal: No tenderness, No warmth Neurological: Other (Muscle wasting to the upper lower extremities including the torso.) - Studies Laboratory Data (last 24 hrs) 09/14/17 18:25: PT 16.5 H, INR 1.39, APTT 40.3 H 09/14/17 18:25: WBC 5.9 D, Hgb 9.2 L, Hct 27.2 L, Plt Count 107 L D 09/14/17 18:25: B-Natriuretic Peptide 57 09/14/17 18:25: Sodium 134 L, Potassium 4.9, BUN 23 H, Creatinine 1.62 H, Glucose 84, Magnesium 1.9, Total Bilirubin 1.5 H, AST 49 H, ALT 16, Alkaline Phosphatase 71 Microbiology Data (last 24 hrs): 09/14/17 18:10 Blood - Other Anaerobic Blood Culture - Final 09/14/17 18:00 Blood - Other Anaerobic Blood Culture - Final Medications List Reviewed: Yes Assessment & Plan - Problems (Diagnosis) (1) Gastroparesis Current Visit: Yes Status: Chronic Plan: Case discussed at length with GI. Patient has a history of fatty liver nonalcoholic cirrhosis. Patient also with severe gastritis, severe gastroparesis. Patient came in with hepatic encephalopathy. Patient will need dobhoff. Family at bedside. Will continue with medication. Discussed at length about advanced directives. Medical power of finance attorney expresses that the patient will be DNR. Medical power of finance attorney also agrees to hospice. This will be arranged. Will discuss with administrator social welfare. (2) Gastritis Current Visit: Yes Status: Chronic Plan: Continue with PPI. Qualifiers: Gastritis type: unspecified gastritis Chronicity: chronic Gastritis bleeding: without bleeding Qualified Code(s): K29.50 - Unspecified chronic gastritis without bleeding (3) Acute on chronic renal failure Onset Date: 09/15/17 Current Visit: Yes Status: Acute Plan: Will continue with IV fluid hydration. Will discuss with nephrology. Qualifiers: Acute renal failure type: unspecified Chronic kidney disease stage: stage 3 (moderate) Qualified Code(s): N17.9 - Acute kidney failure, unspecified; N18.3 - Chronic kidney disease, stage 3 (moderate); N18.3 - Chronic kidney disease, stage 3 (moderate) (4) Hepatic encephalopathy Onset Date: 10/18/16 Current Visit: Yes Status: Acute Plan: Will continue with lactulose and Xifaxan. Patient has not been compliant the past. This is likely related to her gastritis and severe gastroparesis. Patient with nonalcoholic fatty liver disease and cirrhosis. Patient also with history of gastric cancer with previous radiation. Patient had gone to GI specialist in [place]. Patient not a candidate for liver transplant. Family understands this. Patient now on DNR. Family wants hospice. Case discussed at length with GI. GI understands and agrees. (5) Cirrhosis of liver Onset Date: 02/06/15 Current Visit: Yes Status: Chronic Plan: Continue as above. Qualifiers: Hepatic cirrhosis type: other cirrhosis Qualified Code(s): K74.69 - Other cirrhosis of liver (6) Anemia Onset Date: 10/18/16 Current Visit: No Status: Chronic Plan: Will monitor closely. Likely of chronic disease. Qualifiers: Anemia type: other cause Other causes of anemia: chronic disease, other Qualified Code(s): D63.8 - Anemia in other chronic diseases classified elsewhere (7) History of gastric cancer Current Visit: No Status: Chronic Plan: Patient with gastric cancer in the distant past with radiation. Patient not a candidate for liver transplant because of this. (8) Steatohepatitis, non-alcoholic Onset Date: 05/05/17 Current Visit: No Status: Chronic Plan: Continue as above. Discharge Plan: Home Plan to discharge in: 24 Hours - Code Status/Comfort Care Code Status Assessed: Yes (Discuss with family.) Time Spent Managing Pts Care (In Minutes): 55
[2017-09-15] MEDS ORDERED: ENOXAPARIN 30 MG/0.3 ML SQ SCH (17:00)
[2017-09-15] MEDS: PANTOPRAZOLE 40MG TABLET PO SCH (20:54)
[2017-09-15] MEDS: ENSURE ENLIVE 237 ML CAN PO SCH (21:00)
--- NOTE | 2017-09-15 21:29 | P.CNS ---
Date of Consult: 09/15/17 Reason for Consult: EYM Requesting Physician: Dewayne Wynn Primary Care Provider: Dr. Crenshaw; GI-Dr. Helton Chief Complaint: hepatic encephalopathy History of Present Illness: 72 yo HF CKD, PERDOMO presented to the ER with moderate, progressive AMS in the setting of Liver cirrhosis with associated fatigue. No alleviating fx. Noted to have worsening renal failure. Ms Wyman is a 72 years with history of liver cirrhosis, I believe related to PERDOMO currently on liver transplant evaluation, who was in her event host office today and got a large blood draw. After that, the patient become progressively weak, complaining of nausea, and her level of conscious gradually decrease. She did not take her regular medication today due to her doctor appointment. No history of fever, chills, SOB or chest pain. In ER Ammonia level was 145, WBC within normal limits. CXR shows no acute abnormalities, UA negative. 18:01 This 72 yrs old Female presents to ER via EMS with complaints of weakness. snw 18:01 The patient presents to the emergency department with weakness of the entire body, snw generalized weakness. Onset: The symptoms/episode began/occurred gradually , and became worse today. Context: occurred at home, occurred while the patient was pt was with family today giving blood at [facility] in [place] re: pending liver transplant. Associated signs and symptoms: Pertinent positives: weakness. Severity of symptoms: At their worst the symptoms were moderate. Patient's baseline: The patient has a previous history of liver and stomach problems, yeast esophagitis, gave lots of blood samples today to finalize liver transplant. Current symptoms: decreased level of consciousness. The patient has experienced similar episodes in the past. The patient has been recently seen by a physician: with similar presenting complaints. pt recently hospitalized for increased ammonia levels. Allergies levofloxacin [From Levaquin] Allergy (Mild, Verified 09/14/17 23:11) Anaphylaxis ciprofloxacin [From Cipro] Allergy (Verified 09/14/17 23:11) Unknown sulfamethoxazole [From Bactrim] Allergy (Verified 09/14/17 23:11) Unknown trimethoprim [From Bactrim] Allergy (Verified 09/14/17 23:11) Unknown Home medications list reviewed: Yes Home Medications: Rifaximin [Xifaxan] 550 mg PO BID 10/31/13 Lactulose [Cephulac*] 20 gm PO BID 12/04/15 Ferrous Sulfate [Ferrous Sulfate*] 325 mg PO DAILY 10/16/16 Furosemide [Lasix] 40 mg PO DAILY #30 tab 05/07/17 Alendronate Sodium [Alendronate Sodium] 70 mg PO Q7D 09/14/17 Cholecalciferol (Vitamin D3) [Vitamin D3] 2,000 unit PO BID 09/14/17 Cyanocobalamin/Folic Acid [Ra Vit B-12 1,000 Mcg Lozenge] 1 tab PO DAILY Fluconazole [Fluconazole] 200 mg PO DAILY 09/14/17 Nitrofuran Macro [Macrobid] 100 mg PO BID 09/14/17 Pantoprazole Sodium [Pantoprazole Sodium] 40 mg PO DAILY 09/14/17 Spironolactone [Aldactone*] 50 mg PO DAILY 09/14/17 - Past Medical/Surgical History Diabetic: No -: FATTY LIVER -: Chronic UTI -: Stomach Cancer -: encephalopathy -: cirrhosis -: THRUSH -: Carotid Surgery -: Abdominal Surgery -: Breast Cyst Removal -: Hysterectomy -: appendectomy -: Cataract Surgery of right eye - Family History Mother Notes: OSTEOPOROSIS Father Medical History: Hypertension, Diabetes Brother Medical History: Stroke, Cancer Sister Medical History: Liver disease - Social History Smoking Status: Never smoker Alcohol use: No CD- Drugs: No Caffeine use: No Place of Residence: Home Review of Systems 10-point ROS is otherwise unremarkable General: Weakness, Malaise Neurological: Weakness Physical Examination Temp Pulse Resp BP Pulse Ox 98.4 F 78 17 163/72 H 99 09/15/17 16:00 09/15/17 16:00 09/15/17 16:00 09/15/17 16:00 09/15/17 16:00 General: In no apparent distress, Confused, Delirious HEENT: Atraumatic Neck: Supple, No LAD Respiratory: Clear to auscultation bilaterally, Normal air movement Cardiovascular: No edema, Regular rate/rhythm, No rubs Gastrointestinal: Hypoactive, Soft and benign, No guarding, Ascites Musculoskeletal: No clubbing, No contractures Integumentary: No rashes, No cyanosis Neurological: Abnormal speech Blood work reviewed in the chart. Hgb 9; Serum Cr 9 Imagings Data: Reason for Exam: ams Report Status: Signed EXAM DESCRIPTION: RAD - Chest Single View - 09/14/2017 6:15 pm CLINICAL HISTORY: Chest pain. COMPARISON: 09/09/2017 FINDINGS: Portable technique limits examination quality. The lungs are grossly clear. The heart is normal in size. No displaced fractures.Aortic atherosclerosis noted. IMPRESSION: No acute intrathoracic process suspected. Conclusions/Impression: A/ EMY likely hypovolemia. CKD III. Hypocaclemia. PERDOMO/ Liver cirrhosis with ascites. Hepatic Encephalopathy. Anemia in chronic illness. Thrombocytopenia. P/ Continue current POC and Medications. Agree with IVF. Agree with Lactulose. No NSAIDs. AM labs. Daily weight. Thank you kindly for the consultation.
[2017-09-16] MEDS: NA CHLORIDE 0.9% 1,000 ML IV SCH (00:38)
[2017-09-16 05:27] LABS: Absolute Monocytes 0.5 K/uL (0.1-1.3); Absolute Neutrophil 2.5 K/uL (1.8-8.0); Basophils % 2.9 % (0-1.3); Eosinophils % 3.9 % (0-4.4); Hematocrit 21.7 % (36.0-45.0); Lymphocytes % 22.5 % (15.3-44.8); MCH 33.5 pg (27.0-35.0); MCV 99.4 fL (80-100); MPV 9.2 fL (7.6-11.3); Monocytes % 11.1 % (3.3-12.3); RBC Red Blood Cell Count 2.18 M/uL (3.86-4.86)
[2017-09-16 05:54] LABS: Magnesium 1.9 mg/dL (1.8-2.5); Phosphorus 2.6 mg/dL (2.5-4.3); Uric Acid 13.3 mg/dL (2.6-8.0)
[2017-09-16] MEDS ORDERED: PANTOPRAZOLE 40MG TABLET PO SCH (06:30)
[2017-09-16] MEDS ORDERED: SPIRONOLACTONE 25 MG TABLET PO SCH (09:00)
[2017-09-16] MEDS ORDERED: FUROSEMIDE 40 MG TABLET PO SCH (09:00)
[2017-09-16] MEDS: Rifaximin 550 MG Tab PO SCH (09:28)
[2017-09-16] MEDS: LACTULOSE 20 GM/30 ML UCUP PO SCH ×2 (09:28→13:16)
[2017-09-16] MEDS: PANTOPRAZOLE 40MG TABLET PO SCH (09:28)
[2017-09-16] MEDS: FERROUS SULFATE 325 MG TAB PO SCH (09:28)
[2017-09-16] MEDS: ENSURE ENLIVE 237 ML CAN PO SCH (09:30)
[2017-09-16 10:33] VITALS: BP 123/70; TEMP 98.3
--- NOTE | 2017-09-16 12:23 | P.PN ---
Subjective Date of Service: 09/16/17 Primary Care Provider: Dr. Crenshaw; GI-Dr. Helton Chief Complaint: hepatic encephalopathy Subjective: Doing well Physical Examination - Vital Signs Temperature: 98.3 F Blood Pressure: 123/70 Pulse: 73 Respirations: 18 Pulse Ox (%): 100 - Physical Exam General: Alert, In no apparent distress, Cooperative HEENT: Atraumatic, Mucous membr. moist/pink Neck: Supple Respiratory: Clear to auscultation bilaterally, Normal air movement Cardiovascular: Normal pulses, Regular rate/rhythm Gastrointestinal: Normal bowel sounds, Soft and benign, Non-distended, Ascites ( mild) Musculoskeletal: No erythema, No tenderness, No warmth Integumentary: No erythema, No warmth, No cyanosis Neurological: Normal speech, Normal strength at 5/5 x4 extr, Normal tone, Normal affect - Studies Microbiology Data (last 24 hrs): 09/14/17 18:10 Blood - Other Anaerobic Blood Culture - Final 09/14/17 18:00 Blood - Other Anaerobic Blood Culture - Final Medications List Reviewed: Yes Assessment & Plan - Problems (Diagnosis) (1) Gastroparesis Current Visit: Yes Status: Chronic Plan: Case discussed at length with GI. Patient has a history of fatty liver nonalcoholic cirrhosis. Patient also with severe gastritis, severe gastroparesis. Patient came in with hepatic encephalopathy. This was addressed with family. Will recheck lab-H/H, ammonia. If stable then will DC home with hospice later. (2) Gastritis Current Visit: Yes Status: Chronic Plan: Continue with PPI. Qualifiers: Gastritis type: unspecified gastritis Chronicity: chronic Gastritis bleeding: without bleeding Qualified Code(s): K29.50 - Unspecified chronic gastritis without bleeding (3) Acute on chronic renal failure Onset Date: 09/15/17 Current Visit: Yes Status: Acute Plan: This has improved with IV fluids. Will Dc IV fluids at this time. Qualifiers: Acute renal failure type: unspecified Chronic kidney disease stage: stage 3 (moderate) Qualified Code(s): N17.9 - Acute kidney failure, unspecified; N18.3 - Chronic kidney disease, stage 3 (moderate); N18.3 - Chronic kidney disease, stage 3 (moderate) (4) Hepatic encephalopathy Onset Date: 10/18/16 Current Visit: Yes Status: Acute Plan: This has resolved. Will continue with lactulose and Xifaxan. Patient is DNR. Family desires hospice. Will recheck ammonia level today. If stable and alert then will discharge home (5) Cirrhosis of liver Onset Date: 02/06/15 Current Visit: Yes Status: Chronic Plan: Continue as above. Qualifiers: Hepatic cirrhosis type: other cirrhosis Qualified Code(s): K74.69 - Other cirrhosis of liver (6) Anemia Onset Date: 10/18/16 Current Visit: No Status: Chronic Plan: Hemoglobin slightly low this morning. Will recheck. If stable. Plan for discharge Qualifiers: Anemia type: other cause Other causes of anemia: chronic disease, other Qualified Code(s): D63.8 - Anemia in other chronic diseases classified elsewhere (7) History of gastric cancer Current Visit: No Status: Chronic Plan: Patient with gastric cancer in the distant past with radiation. Patient not a candidate for liver transplant because of this. (8) Steatohepatitis, non-alcoholic Onset Date: 05/05/17 Current Visit: No Status: Chronic Plan: Continue as above. Discharge Plan: Home Plan to discharge in: 24 Hours Time Spent Managing Pts Care (In Minutes): 55
[2017-09-16 13:22] LABS: Hematocrit 27.2 % (36.0-45.0)
--- NOTE | 2017-09-16 13:36 | P.DS ---
Admission Date: 09/14/17 Discharge Date: 09/16/17 Primary Care Provider: Dr. Crenshaw; GI-Dr. Helton Disposition: HOSPICE-HOME Discharge Condition: GOOD Reason for Admission: hepatic encephalopathy Consultations: GI-Dr. Helton Nephrology-Dr. Villarreal - Problems (1) Gastroparesis Current Visit: Yes Status: Chronic (2) Gastritis Current Visit: Yes Status: Chronic Qualifiers: Gastritis type: unspecified gastritis Chronicity: chronic Gastritis bleeding: without bleeding Qualified Code(s): K29.50 - Unspecified chronic gastritis without bleeding (3) Acute on chronic renal failure Onset Date: 09/15/17 Current Visit: Yes Status: Acute Qualifiers: Acute renal failure type: unspecified Chronic kidney disease stage: stage 3 (moderate) Qualified Code(s): N17.9 - Acute kidney failure, unspecified; N18.3 - Chronic kidney disease, stage 3 (moderate); N18.3 - Chronic kidney disease, stage 3 (moderate) (4) Hepatic encephalopathy Onset Date: 10/18/16 Current Visit: Yes Status: Acute (5) Cirrhosis of liver Onset Date: 02/06/15 Current Visit: Yes Status: Chronic Qualifiers: Hepatic cirrhosis type: other cirrhosis Qualified Code(s): K74.69 - Other cirrhosis of liver (6) Anemia Onset Date: 10/18/16 Current Visit: No Status: Chronic Qualifiers: Anemia type: other cause Other causes of anemia: chronic disease, other Qualified Code(s): D63.8 - Anemia in other chronic diseases classified elsewhere (7) History of gastric cancer Current Visit: No Status: Chronic (8) Steatohepatitis, non-alcoholic Onset Date: 05/05/17 Current Visit: No Status: Chronic (9) Ascites Current Visit: Yes Status: Chronic Qualifiers: Ascites type: other type Qualified Code(s): R18.8 - Other ascites Brief History of Present Illness: 72-year-old female presented to emergency room with altered mental status. Patient with history of liver cirrhosis, gastroparesis, gastritis, chronic renal disease and anemia of chronic disease. The patient was found to have hepatic encephalopathy. Patient had not been taking her medication regularly. The patient was admitted for treatment. The patient was dehydrated as well. Hospital Course: Patient presented with hepatic encephalopathy. Patient with history of gastric cancer, liver cirrhosis, gastroparesis, gastritis, and chronic renal disease. Patient has seen GI locally and hepatology up in [place]. Patient not a candidate for liver transplant due to her history of gastric cancer. Patient has been losing weight, poor appetite noted, and poor compliance with medication. The patient appeared dehydrated as well. The patient was given IV fluids. Her condition improved. Ammonia level improved as well. Case discussed at length with GI and nephrology. During her stay family understands that this is a terminal chronic condition. The initially were going to continue with home health. Hospice was offered. At discharge she will continue with hospice. At discharge she will continue with lactulose 3 times a day and Xifaxan 550 mg 1 pill twice daily. The patient will also continue with Lasix 40 mg daily and Aldactone 50 mg daily for her ascites. She is to continue with a 1500 cc per day fluid restriction. Recommendation is to monitor her weight daily. Compliance with medication was addressed in detail. Patient may follow up with GI as an outpatient to further evaluate. Patient with chronic renal disease. Patient received IV fluids due to dehydration. Chronic renal disease stable at this time. Patient will follow up with nephrology as an outpatient to further monitor. Patient has anemia of chronic disease with history of iron deficiency anemia, with noted thrombocytopenia. This remained stable during the course of her stay. She did not require transfusion. She will continue with iron supplementation. Recommendation to recheck lab-CBC in 1-2 weeks to monitor progress. Vital Signs/Physical Exam: Temp Pulse Resp BP Pulse Ox 98.3 F 73 18 123/70 100 09/16/17 12:23 09/16/17 12:23 09/16/17 12:23 09/16/17 12:23 09/16/17 12:23 General: Alert, In no apparent distress, Cooperative, Cachectic, Other ( Jaundice noted) HEENT: Atraumatic Neck: Supple Respiratory: Clear to auscultation bilaterally, Normal air movement Cardiovascular: Normal pulses, Regular rate/rhythm Gastrointestinal: Normal bowel sounds, Soft and benign, Non-distended, Ascites Musculoskeletal: No erythema, No tenderness, No warmth Integumentary: No tenderness/swelling, No erythema, No warmth, No cyanosis Neurological: Normal speech, Normal strength at 5/5 x4 extr, Normal tone, Normal affect Laboratory Data at Discharge: WBC 4.2 K/uL (4.3-10.9) L D 03/23/18 04:25 Hgb 9.0 g/dL (12.0-15.0) L 09/16/17 13:00 Hct 27.2 % (36.0-45.0) L D 09/16/17 13:00 Plt Count 128 K/uL (152-406) L 09/16/17 04:25 PT 16.5 SECONDS (9.5-12.5) H 09/14/17 18:25 INR 1.39 09/14/17 18:25 APTT 40.3 SECONDS (24.3-36.9) H 09/14/17 18:25 Sodium 136 mEq/L (135-145) 09/16/17 04:25 Potassium 4.0 mEq/L (3.6-5.0) 09/16/17 04:25 BUN 19 mg/dL (6-20) 09/16/17 04:25 Creatinine 1.18 mg/dL (0.44-1.00) H 09/16/17 04:25 Glucose 65 mg/dL (65-120) 09/16/17 04:25 Uric Acid 13.3 mg/dL (2.6-8.0) H 09/16/17 04:25 Phosphorus 2.6 mg/dL (2.5-4.3) 09/16/17 04:25 Magnesium 1.9 mg/dL (1.8-2.5) 09/16/17 04:25 Total Bilirubin 1.4 mg/dL (0.3-1.2) H 09/15/17 06:10 AST 43 IU/L (10-42) H 09/15/17 06:10 ALT 17 IU/L (10-60) 09/15/17 06:10 Alkaline Phosphatase 67 IU/L (42-121) 09/15/17 06:10 B-Natriuretic Peptide 57 pg/ml (<=100) 09/14/17 18:25 Home Medications: Rifaximin [Xifaxan] 550 mg PO BID 10/31/13 Ferrous Sulfate [Ferrous Sulfate*] 325 mg PO DAILY 10/16/16 Furosemide [Lasix*] 40 mg PO DAILY #30 tab 05/07/17 Alendronate Sodium 70 mg PO Q7D 09/14/17 Cholecalciferol (Vitamin D3) [Vitamin D3] 2,000 unit PO BID 09/14/17 Cyanocobalamin/Folic Acid [Ra Vit B-12 1,000 Mcg Lozenge] 1 tab PO DAILY Spironolactone [Aldactone*] 50 mg PO DAILY 09/14/17 Lactulose [Cephulac*] 30 ml PO TID #1 bottle 09/16/17 Pantoprazole [Protonix Tab*] 40 mg PO BID #60 tab 09/16/17 New Medications: Lactulose [Cephulac*] 30 ml PO TID #1 bottle Pantoprazole [Protonix Tab*] 40 mg PO BID #60 tab Patient Discharge Instructions: 1. Patient will need a follow up with her PCP in 1 week to follow up this hospitalization. 2. Patient will be discharged home with hospice. Patient with history of gastric cancer, liver cirrhosis, gastric paresis, gastritis, and chronic renal disease. Patient presented with hepatic encephalopathy and dehydration. Patient's condition improved. At discharge she will continue with lactulose 3 times a day and Xifaxan 550 mg 1 pill twice daily. The patient will also continue with Lasix 40 mg daily and Aldactone 50 mg daily for her ascites. She is to continue with a 1500 cc per day fluid restriction. Recommendation is to monitor her weight daily. Compliance with medication was addressed in detail. Patient may follow up with GI as an outpatient to further evaluate. Patient seen by customizer in [place]. Patient not a candidate for liver transplant. 3. Patient with chronic renal disease. Patient received IV fluids due to dehydration. Chronic renal disease stable at this time. Patient will follow up with nephrology as an outpatient to further monitor. 4. Patient has anemia of chronic disease and thrombocytopenia with history of iron deficiency anemia. This has remained stable. She will continue with iron supplementation. Recommendation to recheck lab-CBC in 1-2 weeks to monitor progress. Diet: Renal Activity: Fall precautions Time spent managing pt's care (in minutes): 55
--- NOTE | 2017-09-16 18:34 | P.PN ---
Date of Service: 09/16/17 Vital Signs Temp Pulse Resp BP Pulse Ox 98.3 F 73 18 123/70 100 09/16/17 12:23 09/16/17 12:23 09/16/17 12:23 09/16/17 12:23 09/16/17 12:23 Microbiology Results 09/14/17 18:10 Catheterized Urine [place] Count - Preliminary BETWEEN 10,000 & 100,000 CFU/ML 09/14/17 18:10 Catheterized Urine - Preliminary 09/14/17 18:10 Blood - Other Aerobic Blood Culture - Preliminary No growth in 24 hours. 09/14/17 18:10 Blood - Other Anaerobic Blood Culture - Final 09/14/17 18:00 Blood - Other Aerobic Blood Culture - Preliminary No growth in 24 hours. 09/14/17 18:00 Blood - Other Anaerobic Blood Culture - Final Assessment/ Plan: Nephrology. CPS status improved without CP or SOB. No acute events overnight. No acute events overnight. Vitals, medications, blood work and imaging reviewed in the chart. General: In no apparent distress, Confused, Delirious HEENT: Atraumatic Neck: Supple, No LAD Respiratory: Clear to auscultation bilaterally, Normal air movement Cardiovascular: No edema, Regular rate/rhythm, No rubs Gastrointestinal: Hypoactive, Soft and benign, No guarding, Ascites Musculoskeletal: No clubbing, No contractures Integumentary: No rashes, No cyanosis Neurological: Abnormal speech Blood work reviewed in the chart. Hgb 9; Serum Cr 9 Imagings Data: Reason for Exam: ams Report Status: Signed EXAM DESCRIPTION: RAD - Chest Single View - 09/14/2017 6:15 pm CLINICAL HISTORY: Chest pain. COMPARISON: 09/09/2017 FINDINGS: Portable technique limits examination quality. The lungs are grossly clear. The heart is normal in size. No displaced fractures.Aortic atherosclerosis noted. IMPRESSION: No acute intrathoracic process suspected. Conclusions/Impression: A/ EMY likely hypovolemia. CKD III. Hypocaclemia. PERDOMO/ Liver cirrhosis with ascites. Hepatic Encephalopathy. Anemia in chronic illness. Thrombocytopenia. P/ Continue current POC and Medications. Agree with IVF. Agree with Lactulose. No NSAIDs. AM labs. Daily weight. Case discussed with Dr. Wynn.
== END 2017-09-16 15:20 | disposition hospice, home (50) ==
LOC: ER 16:37 → ERHOLD 19:49 → 2ND 21:51
PROVIDERS: ADMIT Internal Medicine; ATTEND Internal Medicine
DX: K72.00 Acute and subacute hepatic failure without coma (principal); E86.0 Dehydration; N18.3 Chronic kidney disease, stage 3 (moderate); N17.9 Acute kidney failure, unspecified; K31.84 Gastroparesis; K29.70 Gastritis, unspecified, without bleeding; K74.60 Unspecified cirrhosis of liver; Z85.00 Personal history of malignant neoplasm of unspecified digestive organ; D63.1 Anemia in chronic kidney disease; K75.81 Nonalcoholic steatohepatitis (NASH); R18.8 Other ascites; Z88.2 Allergy status to sulfonamides
CPT/HCPCS: 36415 ×2; 51702; 71045 ×3; 80048 ×2; 80053; 80076; 81003; 82140 ×3; 82550; 82553; 83735 ×2; 83880; 84100; 84484; 84550; 85014; 85018; 85025 ×3; 85610; 85730; 87040 ×2; 87077; 87086; 87088; 87186; 93005; 97163; 99285; G0378 ×2; J1650; J7030 ×3

== ENCOUNTER 2017-09-28 17:17 | Inpatient (IN) | payer MEDICARE, OTHER ==
--- OUTSIDE RECORDS SUMMARY | 2017-09-28 17:19 | XMS REPORT | Clinical Summary ---
:1945 Author Organization [facility] Address [address] [place] [id number] Care Team Providers Name Role Phone Asked, [...] AND OVER 2012 PNEUMOCOCCAL-13 2012 INFLUENZA VACCINE 01/25/2018 05/07/2008 Results Not on fileafter 09/27/2016 Insurance Payer Benefit Plan / Group Subscriber ID Type Phone Address UHC MEDICARE A[employer] MEDICARE [facility] xxxxxxxxx O Work: Gustavo AZEB DOOLEY [phone] [phone] Home:
--- OUTSIDE RECORDS SUMMARY | 2017-09-28 17:20 | XMS REPORT | Clinical Summary ---
:1945 Author Organization [facility] Address [address] [place] [address] Phone Care Team Providers Name Role Phone Unavailable Primary Care Provider Unavailable Allergies Active Allergy Reactions Severity Noted Date Comments Other Swelling 07/20/2017 Antibiotic - Patient does not remember the drug name Current Medications Prescription Sig. Disp. Refills Start Date End Date Status lactulose (CHRONULAC) Take 20 g by Active 20 gram/30 mL solution mouth 2 (two) times daily. alendronate (FOSAMAX) Take 70 mg by Active 70 MG tablet mouth every 7 days Take in the morning with a full glass of water, on an empty stomach, and do not take anything else by mouth or lie down for the next 30 min. . rifAXIMin 550 mg Tab Take 550 mg by Active mouth 2 (two) times daily. pantoprazole Take 40 mg by Active (PROTONIX) 40 MG mouth daily. tablet ferrous sulfate 325 Take 325 mg by Active (65 FE) MG tablet mouth daily with breakfast. cyanocobalamin Take 1,000 mcg Active (VITAMIN B-12) 1000 by mouth daily. MCG tablet omega-3 fatty Take 1,000 mg by Active acids-vitamin E 1,000 mouth daily. mg Cap bismuth subsalicylate Take 2 tablets Active (BISMUTH by mouth every 6 SUBSALICYLATE) 262 mg (six) hours as Chew chewable tablet needed. furosemide (LASIX) 40 Take 1 tablet 30 tablet 5 08/17/2017 08/17/2018 Active MG tabletIndications: (40 mg total) by Other ascites mouth daily. spironolactone Take 1 tablet 30 tablet 5 08/17/2017 08/17/2018 Active (ALDACTONE) 50 MG (50 mg total) by tabletIndications: mouth daily. Other ascites Active Problems Problem Noted Date Other cirrhosis of liver (HCC) 07/20/2017 Last Assessment & Plan: Cirrhosis is diagnosed based on history, labs and imaging. Etiology is unclear. We will do comprehensive labs to look for chronic liver diseases such as metabolic , viral and autoimmune disorders. We will update the MELD score. If MELD is above 15, we may refer for liver transplant evaluation. We recommended low sodium diet and having 2-3 soft bowel movements per day. Portal hypertension (HCC) 07/20/2017 Last Assessment & Plan: Evidenced by ascites and splenomegaly and resultant thrombocytopenia Other ascites 07/20/2017 Last Assessment & Plan: Patient had paracentesis in the past, no history of SBP. We will start low dose diuretics and recommend sodium restricted diet ( less than 2000 mg a day). We may adjust diuretic dose based on clinical response and electrolytes. Secondary esophageal varices without bleeding (HCC) 07/20/2017 Last Assessment & Plan: EGD from did not show esophageal varices, patient should have another screening EGD in 2 years (2019). We will defer to primary GI specialist. Screening for malignant neoplasm 07/20/2017 Last Assessment & Plan: Cirrhosis, regardless of etiology, is a risk factor for development of hepatocellular carcinoma (HCC). The annual incidence of HCC varies from 1.5-4.5% . Thus, we recommend surveillance of HCC every 6 mo nths with imaging and AFP. Immunity status testing 07/20/2017 Last Assessment & Plan: CDC recommends that all patients with chronic liver disease, regardless of etiology, should be immunized to prevent hepatitis A and hepatitis B if they are not already immune. This should be done in ad dition to other age-appropriate vaccines. We will test for immunity to both viruses - vaccine recommendations will follow. Encounters Date Type Specialty Care Team Description 09/14/2017 Hospital Encounter Niru Silva Canceled (Patient) MD Leroy 09/14/2017 Evaluation Transplant Niru Silva Hepatology MD Dario Harper Amy 09/14/2017 Follow-Up Transplant Niru Silva MD 09/14/2017 Social Work Transplant Niru Silva HepatMD Arnold Polanco Laura L, LCSW 09/14/2017 Office Visit Lab Niru Silva Other cirrhosis of MD Leroy liver (HCC);Pre-transplant evaluation for liver transplant;NAFLD (nonalcoholic fatty liver disease) 09/14/2017 Orders Only Transplant Niru Silva Other cirrhosis of Hepatology MD Leroy liver (HCC);Pre-transplant evaluation for liver transplant;NAFLD (nonalcoholic fatty liver disease) 09/14/2017 Documentation Transplant Lashon Zendejas Hepatology RN 08/25/2017 Telephone Transplant Milka Stoddard Liver Transplant Hepatology Pre-evaluation (Spoke with mercedes Huitrno liver txp eval scheduled. Itinerary mailed to pt.) 08/24/2017 Orders Only Transplant Lashon Zendejas Other cirrhosis of Hepatology RN liver (HCC) (Primary Dx);Pre-transplant evaluation for liver transplant;NAFLD (nonalcoholic fatty liver disease) 08/24/2017 Telephone Transplant Milka Stoddard Liver Transplant Hepatology Pre-evaluation (LVM asking to pt return my call. Liver txp eval scheduling needed.) 08/23/2017 Abstract Hepatology Sammi Chaudhry MA 08/22/2017 Abstract Transplant Jeremiah Michelle Hepatology 08/19/2017 Abstract Hepatology Sharmin Borrego RN 08/19/2017 Abstract Hepatology Sharmin Borrego, RN 08/18/2017 Abstract Hepatology Sharmin Borrego, RN 08/17/2017 Office Visit Hepatology Yonis Singh Other Jermaine MD liver (HCC) (Primary Dx);Portal hypertension (HCC);Secondary esophageal varices without bleeding (HCC);Other ascites;Screening for malignant neoplasm;Immunity status testing 07/28/2017 Documentation Transplant Katie Weiner MA 07/28/2017 Documentation Hepatology Sammi Chaudhry MA 07/25/2017 Hospital Encounter Radiology Yonis Singh Other cirrhosis of MD Andrzej liver (HCC) 07/22/2017 Abstract Hepatology Devante Gomes 07/20/2017 Office Visit Hepatology Yonis Singh Other Jermaine MD liver (HCC);Portal hypertension (HCC);Other ascites;Secondary esophageal varices without bleeding (HCC);Screening for malignant neoplasm;Immunity status testing after 09/27/2016 Family History Medical History Relation Name Comments Diabetes Father Hypertension Father Hypertension Mother Relation Name Status Comments Father Mother Social History Tobacco Use Types Packs/Day Years Used Date Never Smoker Smokeless Tobacco: Never Used Alcohol Use Drinks/Week oz/Week Comments No Sex Assigned at Date Recorded Not on file Last Filed Vital Signs Vital Sign Reading Time Taken Blood Pressure 125/89 09/14/2017 7:32 AM CDT Pulse 67 09/14/2017 7:32 AM CDT Temperature 36.4 C (97.6 F) 09/14/2017 7:32 AM CDT Respiratory Rate 16 09/14/2017 7:32 AM CDT Oxygen Saturation 100% 09/14/2017 7:32 AM CDT Inhaled Oxygen Concentration - - Weight 46.6 kg (102 lb 11.8 oz) 09/14/2017 2:23 PM CDT Height 155 cm (5' 1.02") 09/14/2017 2:23 PM CDT Body Mass Index 19.4 09/14/2017 2:23 PM CDT Plan of Treatment Date Type Specialty Care Team Description 10/05/2017 Office Visit Hepatology Yonis Singh MD [address] [id number] Health Maintenance Due Date Last Done Comments INFLUENZA VACCINE 03/27/2017 Results TRANSFUSION SERVICE REPORT - SCAN (09/15/2017 5:45 PM)Only the most recent of2 resultswithin the time period is included.Nlxsm-4-tyiqbwelkfz Phenotype (2017 10:24 AM) Component Value Ref Range A-1 Antitryp Phenotyp SEE BELOW Comment: THIS PATIENT'S GPVBH-8-[id number] PHENOTYPE IS PI*MM. 90% of normal individuals have the MM phenotype, with normal quantitative AAT levels. Many phenotypic patterns have been described, including deficiency states with F, S, Z, or other alleles. As a general estimation, compared to M allele of 100% of normal O-4-Qovknkszits protein, the S allele produces approximately 60% and the Z allele 20%. For example, an MS phenotype would have about 80% of normal I-1-Hprrnasvwol protein level, a 50% contribution from the M allele and 30% from the S allele. A ZZ phenotype would have about 20% of normal levels, a 10% contribution from each Z gene. The F allele has normal D-5-Mbtxtavnsxx levels, but the kinetics of elastase inhibition is not as efficient as an M allele product; F alleles should be considered functionally mildly deficient. Other variants are identifiable by phenotypic analysis. These include CM, DP, EM, GM, IS, LM, M1M2, M3M3, MP, MT, XX, MY, and M1N. I, P, T and null alleles are considered deleterious. C, D, E, G, L, M1, M2, M3, X and Y alleles are generally considered normal variants. The MZ-Mccartney phenotype is a normal variant; care should be taken to avoid confusion with the deficient MZ phenotype. Specimen Performing Laboratory Blood - Vein [facility] [address] [address] Narrative Performing Lab E[facility] [address] [address] Gracie Smith MD, PhD Blood gas, arterial (09/14/2017 8:36 AM) Component Value Ref Range pH, Arterial 7.49 (H) 7.35 - 7.45 pCO2, Arterial 26 (L) 35 - 45 mmHg pO2, Arterial 121 (H) 80 - 90 mmHg O2 Sat, Arterial 98.7 (H) 96.0 - 97.0 % HCO3, Arterial 20 (L) 21 - 29 mmol/L Base Excess, Arterial -2.9 (L) -2.0 - 3.0 mmol/L Patient Temperature 37.0 C FIO2 21.0 % Specimen Performing Laboratory Blood, Arterial [address] [address] Blood typing, automated (09/14/2017 8:14 AM) Component Value Ref Range ABO/RH AUTOMATED (BEAKER) O POSITIVE Specimen Performing Laboratory Blood [address] [address] T Spot TB (09/14/2017 8:12 AM) Component Value Ref Range T-Spot TB Negative Neg Ctrl Spot Count 0 Panel A Spot 3 Panel B Spot [address] 0 Scan Result Specimen Performing Laboratory Blood [facility] [address] [facility], [address] [place] [address] Iron, TIBC, % sat. (without ferritin) (09/14/2017 8:12 AM)Only the most recent of2 resultswithin the time period is included. Component Value Ref Range Iron 70 40 - 160 ug/dL TIBC 121 (L) 250 - 450 ug/dL Iron % Saturation 58 (H) 20 - 55 % Specimen Performing Laboratory Blood [address] [address] CBC with platelet count + automated diff (09/14/2017 8:12 AM)Only the most recent of2 resultswithin the time period is included. Component Value Ref Range WBC 4.7 3.5 - 10.5 K/L RBC 2.46 (L) 3.93 - 5.22 M/L Hemoglobin 8.2 (L) 11.2 - 15.7 GM/DL Hematocrit 23.9 (L) 34.1 - 44.9 % MCV 97.2 (H) 79.4 - 94.8 fL MCH 33.3 (H) 25.6 - 32.2 pg MCHC 34.3 32.2 - 35.5 GM/DL RDW 19.0 (H) 11.7 - 14.4 % Platelets 136 (L) 150 - 450 K/CU MM MPV 11.3 9.4 - 12.3 fL nRBC 0 0 - 0 /100 WBC % Neutros 56 % % Lymphs 32 % % Monos 9 % % Eos 2 % % Baso 1 % # Neutros 2.64 1.56 - 6.13 K/L # Lymphs 1.48 1.18 - 3.74 K/L # Monos 0.40 (H) 0.24 - 0.36 K/L # Eos 0.10 0.04 - 0.36 K/L # Baso 0.06 0.01 - 0.08 K/L Immature Granulocytes-Relative 0 0 - 1 % Specimen Performing Laboratory Blood [address] [address] Cytomegalovirus antibody, IgM (09/14/2017 8:12 AM) Component Value Ref Range CMV IgM Equivocal Specimen Performing Laboratory Blood [address] [address] Cryptococcal antigen (09/14/2017 8:12 AM) Component Value Ref Range Cryptococcal Antigen, Serum Negative Negative, Interference Specimen Performing Laboratory Blood - Arm, Right [facility] [address] [place] [address] Carbohydrate antigen 19-9 (CA 19-9) (09/14/2017 8:12 AM) Component Value Ref Range CA 19-9 24 <34 U/mL Comment: This test was performed using the Siemens (Techoz) Chemiluminescent method. Values obtained from different assay methods cannot be used interchangeably. CA19-9 levels, regardless of value, should not be interpreted as absolute evidence of the presence or absence of disease. Specimen Performing Laboratory Blood [facility] [address] [address] Narrative Performing Lab EZ [facility] [address] [address] Gracie Smith MD, PhD Zinc (09/14/2017 8:12 AM) Component Value Ref Range Zinc 21 (L) 60 - 130 mcg/dL Comment: This test was developed and its analytical performance characteristics have been determined by [employer] [facility]. It has not been cleared or approved by the US Food and Drug Administration. This assay has been validated pursuant to the CLIA regulations and is used for clinical purposes. ZINC Confirmed by repeat analysis. Specimen Performing Laboratory Blood [facility] [address] [address] Narrative Performing Lab *[facility], [address] [place] [id number] Gracie Smith MD, PhD EBV-VCA antibody, IgM (09/14/2017 8:12 AM) Component Value Ref Range EBV VCA IgM Negative Specimen Performing Laboratory Blood [address] [address] EBV-VCA antibody, IgG (09/14/2017 8:12 AM) Component Value Ref Range EBV VCA IgG Positive Specimen Performing Laboratory Blood [address] [address] Vitamin D, 25-Hydroxy (09/14/2017 8:12 AM) Component Value Ref Range Vitamin D 25-Hydroxy 4.6 (L) 6.6 - 49.9 ng/mL Specimen Performing Laboratory Blood [address] [address] Narrative Effective 04/06/2017: Reference Range Change New: 6.6-49.9 ng/mL Previous: 13.0-47.8 ng/mL Recommended Vitamin D Target Range: 30.0-40.0 ng/mL RPR (09/14/2017 8:12 AM) Component Value Ref Range RPR Nonreactive Nonreactive Specimen Performing Laboratory [address] [address] Cytomegalovirus antibody, IgG (09/14/2017 8:12 AM) Component Value Ref Range CMV IgG Positive Specimen Performing Laboratory [address] [address] CBC with platelet count + automated diff (09/14/2017 8:12 AM)Only the most recent of2 resultswithin the time period is included. Specimen Performing Laboratory Blood [facility] ([facility]) Narrative The following orders were created for panel order CBC with platelet count + automated diff. Procedure Abnormality Status --------- ------ CBC with platelet count ...[[id number]]AbnormalFinal result Please view results for these tests on the individual orders. T3 (09/14/2017 8:12 AM) Component Value Ref Range T3, Total 51 48 - 159 ng/dL Specimen Performing Laboratory [address] [address] Transferrin (09/14/2017 8:12 AM) Component Value Ref Range Transferrin 97 (L) 174 - 382 mg/dL Specimen Performing Laboratory [address] [address] TSH (09/14/2017 8:12 AM) Component Value Ref Range TSH 3.68 0.35 - 4.94 uIU/mL Specimen Performing Laboratory [address] [address] T4 (09/14/2017 8:12 AM) Component Value Ref Range T4, Total 4.6 (L) 4.9 - 11.7 ug/dL Specimen Performing Laboratory [address] [address] Hemoglobin A1c (09/14/2017 8:12 AM) Component Value Ref Range Hemoglobin A1C 4.0 (L) 4.3 - 6.1 % Specimen Performing Laboratory Blood [address] [address] Ethanol (09/14/2017 8:12 AM) Component Value Ref Range Ethanol Lvl <10 <=10 mg/dL Specimen Performing Laboratory [address] [address] HIV-1 Antigen with HIV-1/2 Antibody (09/14/2017 8:11 AM) Component Value Ref Range HIV-1 Antigen with HIV 1&2 Antibody Nonreactive Nonreactive Specimen Performing Laboratory [address] [address] Calcium, Ionized (09/14/2017 8:11 AM) Component Value Ref Range Calcium, Ion 0.99 (L) 1.12 - 1.27 mmol/L pH, Blood 7.40 Specimen Performing Laboratory [address] [address] Hepatitis A antibody, IgM (09/14/2017 8:11 AM) Component Value Ref Range Hep A IgM Nonreactive Nonreactive Specimen Performing Laboratory [address] [address] Hepatitis B core antibody, IgM (09/14/2017 8:11 AM) Component Value Ref Range Hep B C IgM Nonreactive Nonreactive Specimen Performing Laboratory [address] [address] aPTT (09/14/2017 8:11 AM) Component Value Ref Range PTT 39.5 (H) 22.5 - 36.0 seconds Specimen Performing Laboratory [address] [address] Prothrombin time/INR (09/14/2017 8:11 AM)Only the most recent of2 resultswithin the time period is included. Component Value Ref Range Protime 20.3 (H) 11.7 - 14.7 seconds INR 1.7 <=5.9 Specimen Performing Laboratory [address] [address] Narrative RECOMMENDED COUMADIN/WARFARIN INR THERAPY RANGES STANDARD DOSE: 2.0 - 3.0 Includes: PROPHYLAXIS for venous thrombosis, systemic embolization; TREATMENT for venous thrombosis and/or pulmonary embolus. HIGH RISK: Target INR is 2.5-3.5 for patients with mechanical heart valves. Fibrinogen (09/14/2017 8:11 AM) Component Value Ref Range Fibrinogen 130 (L) 225 - 434 mg/dl Specimen Performing Laboratory [address] [address] Uric acid (09/14/2017 8:11 AM) Component Value Ref Range Uric Acid 14.8 (H) 2.6 - 7.2 mg/dL Specimen Performing Laboratory [address] [address] Phosphorus (09/14/2017 8:11 AM) Component Value Ref Range Phosphorus 3.3 2.3 - 4.7 mg/dL Specimen Performing Laboratory [address] [address] Magnesium (09/14/2017 8:11 AM) Component Value Ref Range Magnesium 1.7 1.6 - 2.6 mg/dL Specimen Performing Laboratory [address] [address] Gamma Glutamyl Transferase (GGT) (09/14/2017 8:11 AM) Component Value Ref Range GGT 24 9 - 64 U/L Specimen Performing Laboratory [address] [address] Ferritin (09/14/2017 8:11 AM)Only the most recent of2 resultswithin the time period is included. Component Value Ref Range Ferritin 217 5 - 275 ng/mL Specimen Performing Laboratory [address] [address] Carcinoembryonic Antigen (CEA) (09/14/2017 8:11 AM) Component Value Ref Range CEA, SERUM 12.7 (H) 0.0 - 5.0 ng/mL Specimen Performing Laboratory [address] [address] Bilirubin, direct (09/14/2017 8:11 AM)Only the most recent of2 resultswithin the time period is included. Component Value Ref Range Bilirubin, Direct 0.7 (H) 0.1 - 0.5 mg/dL Specimen Performing Laboratory Blood [address] [address] Lipid panel (09/14/2017 8:11 AM) Component Value Ref Range Triglycerides 64 mg/dL Cholesterol 87 mg/dL HDL 20 mg/dL LDL Calculated 54 mg/dL Specimen Performing Laboratory Blood [address] [address] Narrative Triglyceride Reference Range: Low Risk <150 [id number] High Risk 200-499 Very High Risk>=500 Cholesterol Reference Range: Low Risk <200 Rysdbaxaqj343-847 High Risk>240 HDL Cholesterol Reference Range: Low Risk >=60 High Risk <40 LDL Cholesterol Reference Range: Optimal<100 Near [id number] Bodzhsvlob346-743 Phsx501-495 Very High >=190 Comprehensive metabolic panel (09/14/2017 8:11 AM)Only the most recent of2 resultswithin the time period is included. Component Value Ref Range Protein, Total 7.4 6.0 - 8.3 gm/dL Albumin 2.2 (L) 3.5 - 5.0 g/dL Alkaline Phosphatase 72 40 - 150 U/L Total Bilirubin 1.2 0.2 - 1.2 mg/dL Sodium 133 (L) 136 - 145 meq/L Potassium 4.8 3.5 - 5.1 meq/L Chloride 105 98 - 107 meq/L CO2 18 (L) 22 - 29 meq/L BUN 21 7 - 21 mg/dL Creatinine 1.86 (H) 0.57 - 1.25 mg/dL Glucose 87 70 - 105 mg/dL Calcium 8.2 (L) 8.4 - 10.2 mg/dL AST 40 (H) 5 - 34 U/L ALT 14 6 - 55 U/L EGFR 27Comment: ESTIMATED GFR IS NOT ACCURATE mL/min/1.73 sq m CREATININE CLEARANCE IN PREDICTING GLOMERULAR FILTRATION RATE. ESTIMATED GFR IS NOT APPLICABLE FOR DIALYSIS PATIENTS. Specimen Performing Laboratory Blood [address] [address] Type and screen, automated (09/14/2017 7:46 AM) Component Value Ref Range ABO/RH AUTOMATED (BEAKER) O POSITIVE Ab Scrn NEGATIVE Specimen Performing Laboratory Blood [address] [address] Hepatitis A antibody, IgG (08/17/2017 4:31 PM) Component Value Ref Range Hep A IgG Reactive (A) Nonreactive Specimen Performing Laboratory Blood [address] [address] Mitochondrial Antibodies, M2 (08/17/2017 4:31 PM) Component Value Ref Range Mitochondria M2 Ab <20.0 See Note: U Comment: Reference Range: NEGATIVE:< OR=20.0 EQUIVOCAL: 20.1-24.9 POSITIVE:> OR=25.0 Specimen Performing Laboratory Blood [facility] [address] [place] [address] Narrative Performing Lab [facility] [address] [address] Gracie Smith MD, PhD Hepatitis C antibody (08/17/2017 4:31 PM) Component Value Ref Range Hepatitis C Ab Nonreactive Nonreactive Specimen Performing Laboratory Blood [address] [address] Actin (Smooth Muscle) Antibody, IgG (08/17/2017 4:31 PM) Component Value Ref Range Anti-Smooth Muscle Ab 76 (H) See Note: U Comment: Reference Range: <20 NEGATIVE > OR=20 POSITIVE Antibodies recognizing actin are the main component of smooth muscle antibodies associated with autoimmune liver disease. Actin antibodies are found in approximately 75% of patients with autoimmune hepatitis (AIH) type 1, approximately 65% of patients with autoimmune cholangitis, approximately 30% of patients with primary biliary cirrhosis, and approximately 2% of healthy people. High values are closely correlated with AIH type 1. Specimen Performing Laboratory Blood [facility] [place] [address] [place] [address] Narrative Performing Lab E[facility] [address] [address] Gracie Smith MD, PhD Akfxs-9-Vjnhxzerzfc (08/17/2017 4:31 PM) Component Value Ref Range A-1 Antitrypsin 117.10 90.00 - 200.00 mg/dL Specimen Performing Laboratory Blood [address] [address] JEFF Titer & Pattern (08/17/2017 4:31 PM) Component Value Ref Range JEFF Titer >=1:2560 JEFF Pattern Homogeneous Specimen Performing Laboratory Blood [address] [address] Ceruloplasmin (08/17/2017 4:31 PM) Component Value Ref Range Ceruloplasmin 10 (L) 18 - 53 mg/dL Comment: Adults:Males: 18-36 mg/dL Females: 18-53 mg/dL Pediatrics:Males (mg/dL)Females (mg/dL) 0-30 Days 8-25 3-28 31 Days-11 Month [id number] 1-3 [id number] 4-6 [id number] 7-9 [id number] 10-12 [id number] 13-15 [id number] 16-18 [id number] The pediatric ranges are derived from the following criteria: Marleny SJ, Lauro JM, Margaret J et al Pediatric reference ranges for Wfjt-4-Hwdmnuyvnebmm and ceruloplasmin. Clin. Chem 1997; 43:S1999 Pediatric Reference Ranges, 2nd., [place] Marlenyet al. editors. [employer], [place], [place] 1997. Specimen Performing Laboratory Blood [facility] [address] [place] [address] Narrative Performing Lab *[facility], [address] [place] [address] Gracie Smith MD, PhD Alpha fetoprotein (AFP), tumor marker (08/17/2017 4:31 PM) Component Value Ref Range Alpha-Fetoprotein <2.0 <10.0 ng/mL Specimen Performing Laboratory Blood [address] [address] Hepatitis B core antibody, total (08/17/2017 4:31 PM) Component Value Ref Range Hep B Core Total Ab Nonreactive Nonreactive Specimen Performing Laboratory Blood [address] [address] Hepatitis B surface antibody (08/17/2017 4:31 PM) Component Value Ref Range Hep B S Ab <8.0 <8.0 mIU/mL Specimen Performing Laboratory Blood [address] [address] Hepatitis B surface antigen (08/17/2017 4:31 PM) Component Value Ref Range hepatitis B Surface Ag Nonreactive Nonreactive Specimen Performing Laboratory Blood [address] [address] Anti-Nuclear Antibody (JEFF) (08/17/2017 4:31 PM) Component Value Ref Range JEFF Positive (A) Negative Specimen Performing Laboratory Blood [address] [address] MR abdomen with/without IV contrast (07/25/2017 12:35 PM) Specimen Performing Laboratory GE [facility]IS Narrative FINAL REPORT TECHNIQUE: MRI of the abdomen WITHOUT and WITH intravenous contrast. INDICATION: 72-year-old woman with cirrhosis. COMPARISON: None. FINDINGS: LOWER THORAX: Unremarkable. LIVER: Nodular cirrhotic liver. No focal hepatic lesions. BILIARY: Cholelithiasis without gallbladder wall thickening. No biliary ductal dilatation or filling defect. SPLEEN: No splenomegaly. PANCREAS: No focal masses or ductal dilatation. ADRENALS: No adrenal nodules. KIDNEYS/URETERS: No hydronephrosis or solid mass lesions. Subcentimeter right renal cyst. PERITONEUM/RETROPERITONEUM: Large volume ascites. LYMPH NODES: No lymphadenopathy. VESSELS: Nonocclusive thrombus in the main portal vein. Superior mesenteric vein is patent. Diminutive splenic vein. Hepatic veins are patent. Suspected small recanalized umbilical vein. GI TRACT: The proximal stomach is mildly distended with food debris. No bowel wall thickening or obstruction. BONES AND SOFT TISSUES: Degenerative changes of the visualized spine. IMPRESSION: Cirrhosis with portal hypertension and large volume ascites. No suspicious liver lesions. 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 Cholelithiasis. Signed: Massiel Vidal MD Report Verified Date/Time:07/25/2017 15:10:56 Reading Location: [address] Body Reading Room Procedure Note Interface, External Ris In - 07/25/2017 3:13 PM BOBBIN HAULER FINAL REPORT TECHNIQUE: MRI of the abdomen WITHOUT and WITH intravenous contrast. INDICATION: 72-year-old woman with cirrhosis. COMPARISON: None. FINDINGS: LOWER THORAX: Unremarkable. LIVER: Nodular cirrhotic liver. No focal hepatic lesions. BILIARY: Cholelithiasis without gallbladder wall thickening. No biliary ductal dilatation or filling defect. SPLEEN: No splenomegaly. PANCREAS: No focal masses or ductal dilatation. ADRENALS: No adrenal nodules. KIDNEYS/URETERS: No hydronephrosis or solid mass lesions. Subcentimeter right renal cyst. PERITONEUM/RETROPERITONEUM: Large volume ascites. LYMPH NODES: No lymphadenopathy. VESSELS: Nonocclusive thrombus in the main portal vein. Superior mesenteric vein is patent. Diminutive splenic vein. Hepatic veins are patent. Suspected small recanalized umbilical vein. GI TRACT: The proximal stomach is mildly distended with food debris. No bowel wall thickening or obstruction. BONES AND SOFT TISSUES: Degenerative changes of the visualized spine. IMPRESSION: Cirrhosis with portal hypertension and large volume ascites. No suspicious liver lesions. 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 Cholelithiasis. Signed: Massiel Vidal MD Report Verified Date/Time: 07/25/2017 15:10:56 Reading Location: [facility] C013Y CT Body Reading Room -Creatinine (07/25/2017 11:00 AM) Component Value Ref Range POC-Creatinine 1.2Comment: TESTED AT [address] 0.6 - 1.3 mg/dL [address] POC-EGFR 44 mL/min/1.73M2 Specimen Performing Laboratory Blood [facility] [address] [address] after 09/27/2016
--- OUTSIDE RECORDS SUMMARY | 2017-09-28 17:20 | XMS REPORT ---
:1945 [facility] Address [address] [place] [address] Dr. Gao [address] [place] [id number] Care Team Providers Name Role Phone LALI MONTEJO Unavailable Unavailable INDIGO RAMOS Unavailable Unavailable Problems This patient has no known problems. Allergies, Adverse Reactions, Alerts This patient has no known allergies or adverse reactions. Medications This patient has no known medications. Results Test Description Test Time Test Comments Text Results Atomic Results Result Comments CYTOMEGALOVIRUS ANTIBODY, IGG 2017-09-17 07:20:00 Test Item Value Reference Range Comments CYTOMEGALOVIRUS IGG ANTIBODY (BEAKER) (test rbfn=789) Positive CYTOMEGALOVIRUS ANTIBODY, [id number] 07:20:00 Test Item Value Reference Range Comments CYTOMEGALOVIRUS IGM ANTIBODY (BEAKER) (test Equivocal smab=132) EBV-VCA ANTIBODY, [id number] 07:20:00 Test Item Value Reference Range Comments CLARIBEL-BLACK VCA IGG (BEAKER) (test udgi=685) Positive EBV-VCA ANTIBODY, [id number] 07:20:00 Test Item Value Reference Range Comments CLARIBEL-BLACK VCA IGM (BEAKER) (test zirs=973) Negative HEMOGLOBIN [id number] 06:33:00 Test Item Value Reference Range Comments HEMOGLOBIN A1C (BEAKER) (test ciek=438) 4.0 % 4.3-6.1 [id number] 14:33:00 Test Item Value Reference Range Comments T4 TOTAL (BEAKER) (test jwoo=084) 4.6 ug/dL 4.9-11.7 [id number] 14:33:00 Test Item Value Reference Range Comments THYROID STIMULATING HORMONE (BEAKER) (test 3.68 uIU/mL 0.35-4.94 fjho=163) [id number] 14:33:00 Test Item Value Reference Range Comments T3 TOTAL (BEAKER) (test qqpy=084) 51 ng/dL 48-159 VITAMIN D, [id number] 12:10:00 Test Item Value Reference Range Comments VITAMIN D 25-OH (BEAKER) (test vvov=7675) 4.6 ng/mL 6.6-49.9 Effective 04/06/2017: Reference Range ChangeNew: 6.6-49.9 ng/mL Previous: 13.0 -47.8 ng/mLRecommended Vitamin D Target Range: 30.0-40.0 ng/mLCRYPTOCOCCAL [id number] 12:09:00 Test Item Value Reference Range Comments CRYPTOCOCCAL ANTIGEN, SERUM (BEAKER) (test Negative Negative, Interference qvul=2161) [id number] 12:08:00 Test Item Value Reference Range Comments RPR SCREEN (BEAKER) (test sodr=329) Nonreactive Nonreactive CARCINOEMBRYONIC ANTIGEN (CEA)2017-09-14 12:01:00 Test Item Value Reference Range Comments CARCINOEMBRYONIC ANTIGEN (BEAKER) (test xrqf=288) 12.7 ng/mL 0.0-5.0 [id number] 12:01:00 Test Item Value Reference Range Comments FERRITIN (BEAKER) (test zgit=753) 217 ng/mL 5-275 BLOOD GAS, [id number] 10:35:00 Test Item Value Reference Range Comments PH ARTERIAL (BEAKER) (test vewr=248) 7.49 7.35-7.45 PCO2 ARTERIAL (BEAKER) (test ynpd=469) 26 mmHg 35-45 PO2 ARTERIAL (BEAKER) (test nnfb=075) 121 mmHg 80-90 O2 SATURATION ARTERIAL (BEAKER) (test orpk=184) 98.7 % 96.0-97.0 HCO3 ARTERIAL (BEAKER) (test rpak=075) 20 mmol/L 21-29 BASE EXCESS ARTERIAL (BEAKER) (test szsn=524) -2.9 mmol/L -2.0-3.0 PATIENT TEMPERATURE (BEAKER) (test thsz=9994) 37.0 C FIO2 (BEAKER) (test ydbq=5648) 21.0 % COMPREHENSIVE METABOLIC [id number] 10:31:00 Test Item Value Reference Range Comments TOTAL PROTEIN (BEAKER) 7.4 gm/dL 6.0-8.3 (test nkjy=131) ALBUMIN (BEAKER) (test 2.2 g/dL 3.5-5.0 fytv=0072) ALKALINE PHOSPHATASE 72 U/L 40-150 (BEAKER) (test ipgw=096) BILIRUBIN TOTAL (BEAKER) 1.2 mg/dL 0.2-1.2 (test adsd=607) SODIUM (BEAKER) (test 133 meq/L 136-145 ihwb=023) POTASSIUM (BEAKER) (test 4.8 meq/L 3.5-5.1 icuy=152) CHLORIDE (BEAKER) (test 105 meq/L 98-107 lzbe=140) CO2 (BEAKER) (test 18 meq/L 22-29 zvfk=990) BLOOD UREA NITROGEN 21 mg/dL 7-21 (BEAKER) (test pjrx=003) CREATININE (BEAKER) (test 1.86 mg/dL 0.57-1.25 kqgs=495) GLUCOSE RANDOM (BEAKER) 87 mg/dL 70-105 (test adux=033) CALCIUM (BEAKER) (test 8.2 mg/dL 8.4-10.2 entq=318) AST (SGOT) (BEAKER) (test 40 U/L 5-34 homf=364) ALT (SGPT) (BEAKER) (test 14 U/L 6-55 hemf=966) EGFR (BEAKER) (test 27 mL/min/1.73 sq m ESTIMATED GFR IS NOT rzrm=3234) ACCURATE CREATININE CLEARANCE IN PREDICTING GLOMERULAR FILTRATION RATE. ESTIMATED GFR IS NOT APPLICABLE FOR DIALYSIS PATIENTS. [id number] 10:24:00 Test Item Value Reference Range Comments TRANSFERRIN (BEAKER) (test vyoe=793) 97 mg/dL 174-382 IRON, TIBC, % SAT. (WITHOUT FERRITIN)2017-09-14 10:24:00 Test Item Value Reference Range Comments IRON (BEAKER) (test fhpo=244) 70 ug/dL 40-160 TOTAL IRON BINDING CAPACITY (BEAKER) (test 121 ug/dL 250-450 febs=331) IRON % SATURATION (2) (BEAKER) (test xvoz=2200) 58 % 20-55 [id number] 10:22:00 Test Item Value Reference Range Comments ETHANOL (BEAKER) (test ljtm=405) < mg/dL <=10 URIC [id number] 10:15:00 Test Item Value Reference Range Comments URIC ACID (BEAKER) (test obcd=539) 14.8 mg/dL 2.6-7.2 [id number] 10:15:00 Test Item Value Reference Range Comments MAGNESIUM (BEAKER) (test xahe=122) 1.7 mg/dL 1.6-2.6 [id number] 10:15:00 Test Item Value Reference Range Comments PHOSPHORUS (BEAKER) (test msti=028) 3.3 mg/dL 2.3-4.7 LIPID [id number] 10:15:00 Test Item Value Reference Range Comments TRIGLYCERIDES (BEAKER) (test ahfw=863) 64 mg/dL CHOLESTEROL (BEAKER) (test klyb=695) 87 mg/dL HDL CHOLESTEROL (BEAKER) (test xrgq=116) 20 mg/dL LDL CHOLESTEROL CALCULATED (BEAKER) (test tsrl=908) 54 mg/dL Triglyceride Reference Range: Low Risk <150 Borderline 150- 199 High Risk 200-499 Very High Risk >=500Cholesterol Reference Range: Low Risk <200 Borderline 200-239 High Risk > 240HDL Cholesterol Reference Range: Low Risk >=60 High Risk <40LDL Cholesterol Reference Range: Optimal <100 Near Optimal 100-129 Borderline 130-159 High 160-189 Very High >=190BILIRUBIN, [id number] 10:15:00 Test Item Value Reference Range Comments BILIRUBIN DIRECT (BEAKER) (test xxyo=417) 0.7 mg/dL 0.1-0.5 GAMMA GLUTAMYL TRANSFERASE (GGT)2017-09-14 10:15:00 Test Item Value Reference Range Comments GAMMA GLUTAMYL TRANSFERASE (BEAKER) (test sjle=705) 24 U/L 9-64 HEPATITIS B CORE ANTIBODY, [id number] 10:11:00 Test Item Value Reference Range Comments HEPATITIS B CORE IGM ANTIBODY (BEAKER) (test Nonreactive Nonreactive hzxy=611) HEPATITIS A ANTIBODY, [id number] 10:11:00 Test Item Value Reference Range Comments HEPATITIS A IGM ANTIBODY (BEAKER) (test Nonreactive Nonreactive clch=724) HIV-1 ANTIGEN WITH HIV-1/2 [id number] 10:11:00 Test Item Value Reference Range Comments HIV-1 ANTIGEN WITH HIV 1\T\2 ANTIBODY (2) Nonreactive Nonreactive (BEAKER) (test rssw=3566) [id number] 09:35:00 Test Item Value Reference Range Comments FIBRINOGEN LEVEL (BEAKER) (test dgbb=745) 130 mg/dl 225-434 CALCIUM, [id number] 09:32:00 Test Item Value Reference Range Comments CALCIUM IONIZED (BEAKER) (test wsps=378) 0.99 mmol/L 1.12-1.27 PH, BLOOD (BEAKER) (test jsat=5233) 7.40 PROTHROMBIN [id number] 09:30:00 Test Item Value Reference Range Comments PROTIME (BEAKER) (test rmnl=104) 20.3 seconds 11.7-14.7 INR (BEAKER) (test prnz=611) 1.7 <=5.9 RECOMMENDED COUMADIN/WARFARIN INR THERAPY RANGESSTANDARD DOSE: 2.0 - 3.0 Includes: PROPHYLAXIS forvenous thrombosis, systemic embolization; TREATMENT for venous thrombosis and/or pulmonary embolus.HIGH RISK: Target INR is 2.5-3.5 for patients with mechanical heart valves.[id number] 09:30:00 Test Item Value Reference Range Comments PARTIAL THROMBOPLASTIN TIME (BEAKER) (test 39.5 seconds 22.5-36.0 nvgm=843) CBC W/PLT COUNT & AUTO [id number] 09:29:00 Test Item Value Reference Range Comments WHITE BLOOD CELL COUNT (BEAKER) (test fvny=254) 4.7 K/ L 3.5-10.5 RED BLOOD CELL COUNT (BEAKER) (test repz=790) 2.46 M/ L 3.93-5.22 HEMOGLOBIN (BEAKER) (test kvwe=932) 8.2 GM/DL 11.2-15.7 HEMATOCRIT (BEAKER) (test wgfl=798) 23.9 % 34.1-44.9 MEAN CORPUSCULAR VOLUME (BEAKER) (test dqva=123) 97.2 fL 79.4-94.8 MEAN CORPUSCULAR HEMOGLOBIN (BEAKER) (test 33.3 pg 25.6-32.2 ddaf=074) MEAN CORPUSCULAR HEMOGLOBIN CONC (BEAKER) (test 34.3 GM/DL 32.2-35.5 zbvv=719) RED CELL DISTRIBUTION WIDTH (BEAKER) (test 19.0 % 11.7-14.4 cpta=531) PLATELET COUNT (BEAKER) (test wvxw=568) 136 K/CU MM 150-450 MEAN PLATELET VOLUME (BEAKER) (test djcd=541) 11.3 fL 9.4-12.3 NUCLEATED RED BLOOD CELLS (BEAKER) (test 0 /100 WBC 0-0 kmpg=146) NEUTROPHILS RELATIVE PERCENT (BEAKER) (test 56 % hiqw=400) LYMPHOCYTES RELATIVE PERCENT (BEAKER) (test 32 % vbqf=722) MONOCYTES RELATIVE PERCENT (BEAKER) (test 9 % erbl=000) EOSINOPHILS RELATIVE PERCENT (BEAKER) (test 2 % kkjf=417) BASOPHILS RELATIVE PERCENT (BEAKER) (test 1 % erak=808) NEUTROPHILS ABSOLUTE COUNT (BEAKER) (test 2.64 K/ L 1.56-6.13 qjsc=804) LYMPHOCYTES ABSOLUTE COUNT (BEAKER) (test 1.48 K/ L 1.18-3.74 bbri=279) MONOCYTES ABSOLUTE COUNT (BEAKER) (test 0.40 K/ L 0.24-0.36 chaf=178) EOSINOPHILS ABSOLUTE COUNT (BEAKER) (test 0.10 K/ L 0.04-0.36 ovsl=767) BASOPHILS ABSOLUTE COUNT (BEAKER) (test 0.06 K/ L 0.01-0.08 qnxx=114) IMMATURE GRANULOCYTES-RELATIVE PERCENT (BEAKER) 0 % 0-1 (test vuid=2477) JEFF TITER AND [id number] 14:15:00 Test Item Value Reference Range Comments JEFF TITER (BEAKER) (test xxsn=7057) >=:2560 JEFF PATTERN (BEAKER) (test lgge=0391) Homogeneous ANTI-NUCLEAR ANTIBODY (JEFF)2017-08-18 14:14:00 Test Item Value Reference Range Comments ANTI-NUCLEAR ANTIBODY (JEFF) (BEAKER) (test Positive Negative dodz=539) HEPATITIS B SURFACE [id number] 19:32:00 Test Item Value Reference Range Comments HEPATITIS B SURFACE ANTIBODY (BEAKER) (test < mIU/mL <8.0 gvkb=481) HEPATITIS A ANTIBODY, [id number] 19:32:00 Test Item Value Reference Range Comments HEPATITIS A IGG ANTIBODY (BEAKER) (test gpak=7255) Reactive Nonreactive HEPATITIS B CORE ANTIBODY, [id number] 19:31:00 Test Item Value Reference Range Comments HEPATITIS B CORE TOTAL ANTIBODY (BEAKER) (test Nonreactive Nonreactive frim=859) HEPATITIS B SURFACE [id number] 19:28:00 Test Item Value Reference Range Comments HEPATITIS B SURFACE ANTIGEN (2) (BEAKER) (test Nonreactive Nonreactive afdg=9390) HEPATITIS C [id number] 19:28:00 Test Item Value Reference Range Comments HEPATITIS C ANTIBODY (BEAKER) (test ttgx=192) Nonreactive Nonreactive IRON, TIBC, % SAT. (WITHOUT FERRITIN)2017-08-17 19:20:00 Test Item Value Reference Range Comments IRON (BEAKER) (test wnmi=842) 51 ug/dL 40-160 TOTAL IRON BINDING CAPACITY (BEAKER) (test 118 ug/dL 250-450 bstd=984) IRON % SATURATION (2) (BEAKER) (test vkmg=5762) 43 % 20-55 ALPHA FETOPROTEIN (AFP), TUMOR [id number] 17:53:00 Test Item Value Reference Range Comments ALPHA-FETOPROTEIN (BEAKER) (test wgbh=5277) < ng/mL <10.0 [id number] 17:49:00 Test Item Value Reference Range Comments FERRITIN (BEAKER) (test ubwm=902) 167 ng/mL 5-275 COMPREHENSIVE METABOLIC [id number] 17:31:00 Test Item Value Reference Range Comments TOTAL PROTEIN (BEAKER) 7.5 gm/dL 6.0-8.3 (test dqzn=081) ALBUMIN (BEAKER) (test 2.1 g/dL 3.5-5.0 apot=6573) ALKALINE PHOSPHATASE 86 U/L 40-150 (BEAKER) (test hzfd=783) BILIRUBIN TOTAL (BEAKER) 1.4 mg/dL 0.2-1.2 (test mzye=228) SODIUM (BEAKER) (test 135 meq/L 136-145 nybr=147) POTASSIUM (BEAKER) (test 4.5 meq/L 3.5-5.1 rlrh=659) CHLORIDE (BEAKER) (test 110 meq/L 98-107 wmqa=726) CO2 (BEAKER) (test 17 meq/L 22-29 rkon=578) BLOOD UREA NITROGEN 22 mg/dL 7-21 (BEAKER) (test eobx=587) CREATININE (BEAKER) (test 1.48 mg/dL 0.57-1.25 xkqr=844) GLUCOSE RANDOM (BEAKER) 76 mg/dL 70-105 (test fsrj=769) CALCIUM (BEAKER) (test 7.7 mg/dL 8.4-10.2 nfgj=038) AST (SGOT) (BEAKER) (test 39 U/L 5-34 ytui=411) ALT (SGPT) (BEAKER) (test 15 U/L 6-55 mqlp=161) EGFR (BEAKER) (test 35 mL/min/1.73 sq m ESTIMATED GFR IS NOT cdqh=2372) ACCURATE CREATININE CLEARANCE IN PREDICTING GLOMERULAR FILTRATION RATE. ESTIMATED GFR IS NOT APPLICABLE FOR DIALYSIS PATIENTS. BILIRUBIN, [id number] 17:30:00 Test Item Value Reference Range Comments BILIRUBIN DIRECT (BEAKER) (test vwru=957) 0.8 mg/dL 0.1-0.5 [id number] 17:29:00 Test Item Value Reference Range Comments ALPHA-1 ANTITRYPSIN (BEAKER) (test xbqk=318) 117.10 mg/dL 90.00-200.00 PROTHROMBIN [id number] 17:25:00 Test Item Value Reference Range Comments PROTIME (BEAKER) (test exdp=423) 22.0 seconds 11.7-14.7 INR (BEAKER) (test zlxz=501) 1.9 <=5.9 RECOMMENDED COUMADIN/WARFARIN INR THERAPY RANGESSTANDARD DOSE: 2.0 - 3.0 Includes: PROPHYLAXIS forvenous thrombosis, systemic embolization; TREATMENT for venous thrombosis and/or pulmonary embolus.HIGH RISK: Target INR is 2.5-3.5 for patients with mechanical heart valves.CBC W/PLT COUNT & AUTO [id number] 17:16:00 Test Item Value Reference Range Comments WHITE BLOOD CELL COUNT (BEAKER) (test pyrl=206) 8.5 K/ L 3.5-10.5 RED BLOOD CELL COUNT (BEAKER) (test nncm=267) 2.82 M/ L 3.93-5.22 HEMOGLOBIN (BEAKER) (test spwz=488) 9.1 GM/DL 11.2-15.7 HEMATOCRIT (BEAKER) (test lzwb=385) 26.8 % 34.1-44.9 MEAN CORPUSCULAR VOLUME (BEAKER) (test ilhs=180) 95.0 fL 79.4-94.8 MEAN CORPUSCULAR HEMOGLOBIN (BEAKER) (test 32.3 pg 25.6-32.2 eeqb=661) MEAN CORPUSCULAR HEMOGLOBIN CONC (BEAKER) (test 34.0 GM/DL 32.2-35.5 kmrh=231) RED CELL DISTRIBUTION WIDTH (BEAKER) (test 18.5 % 11.7-14.4 qczw=911) PLATELET COUNT (BEAKER) (test wlua=822) 159 K/CU MM 150-450 MEAN PLATELET VOLUME (BEAKER) (test apia=523) 11.0 fL 9.4-12.3 NUCLEATED RED BLOOD CELLS (BEAKER) (test 0 /100 WBC 0-0 wmcm=029) NEUTROPHILS RELATIVE PERCENT (BEAKER) (test 76 % zppi=586) LYMPHOCYTES RELATIVE PERCENT (BEAKER) (test 16 % hrbh=036) MONOCYTES RELATIVE PERCENT (BEAKER) (test 5 % lmwn=040) EOSINOPHILS RELATIVE PERCENT (BEAKER) (test 2 % egqz=420) BASOPHILS RELATIVE PERCENT (BEAKER) (test 1 % fqpa=180) NEUTROPHILS ABSOLUTE COUNT (BEAKER) (test 6.45 K/ L 1.56-6.13 onup=272) LYMPHOCYTES ABSOLUTE COUNT (BEAKER) (test 1.34 K/ L 1.18-3.74 ekxn=213) MONOCYTES ABSOLUTE COUNT (BEAKER) (test 0.44 K/ L 0.24-0.36 eymh=335) EOSINOPHILS ABSOLUTE COUNT (BEAKER) (test 0.16 K/ L 0.04-0.36 tjva=679) BASOPHILS ABSOLUTE COUNT (BEAKER) (test 0.04 K/ L 0.01-0.08 esgo=605) IMMATURE GRANULOCYTES-RELATIVE PERCENT (BEAKER) 0 % 0-1 (test elmt=9919) MR, ABDOMEN, [id number] 15:10:00Referring: Dr. Magui White PROTOCOLFINAL REPORT TECHNIQUE: MRI of the [...] Verified Date/Time : 07/25/2017 15:10:56 Reading Location: [address] Body Reading Room POCT- [id number] 11:04:00 Test Item Value Reference Range Comments POC-CREATININE (Philz CoffeeAKER) 1.2 mg/dL 0.6-1.3 TESTED AT [address] (test mjyh=8880) [facility] [address] POC-EGFR (BEAKER) (test 44 mL/min/1.73M2 qufx=8212)
[2017-09-28] MEDS ORDERED: HYDROCODONE/CHLORPHEN 5 ML/OSYR ONE (18:59)
--- NOTE | 2017-09-28 19:35 | RAD REPORT ---
EXAM DESCRIPTION: Joe Pa And Lat (2 Views)09/28/2017 7:25 pm CLINICAL HISTORY: Cough COMPARISON: August 2017 FINDINGS: A right lower lobe consolidation is present with small pleural effusion. A mild left basi lar opacity may be present. The heart is normal size IMPRESSION: Right lower lobe pneumonia. This should be followed until it is clear to help exclude a post obstructive process/underlying mass
[2017-09-28 20:00] LABS: Absolute Lymphocytes (CBC) 0.4 K/uL (0.7-4.9); Absolute Monocytes 0.5 K/uL (0.1-1.3); Absolute Neutrophil 10.2 K/uL (1.8-8.0); Basophils % 0.1 % (0-1.3); Hematocrit 26.2 % (36.0-45.0); Lymphocytes % 3.7 % (15.3-44.8); MCH 33.3 pg (27.0-35.0); MCV 98.6 fL (80-100); Monocytes % 4.1 % (3.3-12.3); RBC Red Blood Cell Count 2.66 M/uL (3.86-4.86)
[2017-09-28 20:10] LABS: Potassium 4.7 mEq/L (3.6-5.0)
[2017-09-28] MEDS ORDERED: PIPER/TAZO/NS 3.375gm 3.375 GM/100 ML BAG ONE (20:32)
--- NOTE | 2017-09-28 20:47 | ER ---
Nurse's Notes [facility] Name: Sharri Wyman Age: 72 yrs Sex: Female : 1945 Arrival Date: 09/28/2017 Time: 17:22 Bed 16 Private MD: Diagnosis: Pneumonia, unspecified organism;Dehydration;Acute kidney failure, unspecified Presentation: 09/28 17:25 Presenting complaint: Child states: "She has been on Amoxicillin. They put her on lk1 steroid and nebulizers. She isn't getting better and I don't want her to get pneumonia. She is on home health Hospice care and they told me to bring her here to get her checked.". Transition of care: patient was not received from another setting of care. Onset of symptoms was September 17, 2017. Care prior to arrival: None. 17:25 Method Of Arrival: Wheelchair lk1 17:25 Acuity: DARRION 3 lk1 Triage Assessment: 17:29 General: Appears in no apparent distress. Behavior is calm, cooperative, appropriate lk1 for age. Pain: Complains of pain in chest Pain currently is 7 out of 10 on a pain scale. Respiratory: Reports cough that is Airway is patent Respiratory effort is even, unlabored, Respiratory pattern is regular, symmetrical. Historical: - Allergies: 17:28 Bactrim; lk1 17:28 Cipro; lk1 17:28 Levaquin; lk1 - PMHx: 17:28 acid reflux; Cirrhosis; hx of stomace cancer; stomach cancer; UTI; lk1 17:48 Hospice; jl7 - PSHx: 17:28 Hysterectomy; stomach removal; lump removed from breast; Appendectomy; lk1 - Immunization history:: Adult Immunizations up to date. - Social history:: Smoking status: Patient/guardian denies using tobacco. Screenin:41 Abuse screen: Denies threats or abuse. Denies injuries from another. Nutritional jl7 screening: No deficits noted. Tuberculosis screening: No symptoms or risk factors identified. 23:10 Fall Risk Fall in past 12 months (25 points). No secondary diagnosis (0 pts). IV access bs1 (20 points). Ambulatory Aid- Crutches/Cane/Walker (15 pts). Gait- Weak (10 pts.). Mental Status- Oriented to own ability (0 pts). Total Bishop Fall Scale indicates High Risk Score (45 or more points). Assessment: 17:41 General: Appears uncomfortable, Behavior is calm, cooperative. Pain: Complains of pain jl7 in Chest "When I cough." Pain does not radiate. Pain currently is 0 out of 10 on a pain scale. at worst was 8 out of 10 on a pain scale. Quality of pain is described as "It just hurts." Pain began a week ago Is intermittent. Neuro: Level of Consciousness is awake, alert, obeys commands, Oriented to person, place, time, situation. Cardiovascular: Heart tones S1 S2 present Patient's skin is warm and dry. Respiratory: Airway is patent Respiratory effort is even, unlabored, shallow, Respiratory pattern is regular, symmetrical, Breath sounds with crackles in left lower lobe and left posterior lower lobe Breath sounds are diminished bilaterally. GI: No signs and/or symptoms were reported involving the gastrointestinal system. : No signs and/or symptoms were reported regarding the genitourinary system. EENT: No signs and/or symptoms were reported regarding the EENT system. Derm: Skin is dry, Skin is yellow, Skin temperature is warm. 17:48 Reassessment: Pt's family reports "She is on hospice. They told us to bring her in to jl7 get her lungs checked.". 19:45 Reassessment: Patient appears in no apparent distress at this time. No changes from bs1 previously documented assessment. Patient and/or family updated on plan of care and expected duration. Pain level reassessed. Family at bedside. Pending results of chest x ray. 20:10 Reassessment: Order for blood cultures cancelled, clarified with provider Mane that bs1 she wants 2 set of blood cultures, Provider does want 2 sets of blood cultures. Lab called and informed of [facility] canceling blood cultures. Labs took verbal order from Nurse Mady to order 2 sets and request to come and draw cultures. 21:00 Reassessment: Informed Provider Mane that we were having a hard time getting blood bs1 cultures, provider gave verbal order to at least get 1 set of blood cultures. Order received. Vital Signs: 17:29 BP 112 / 68; Pulse 76; Resp 18; Temp 97.6(O); Pulse Ox 93% on R/A; Weight 49.9 kg (R); lk1 Height 5 ft. 2 in. (157.48 cm) (R); Pain 7/10; 17:53 BP 121 / 63; Pulse 59; Resp 16 S; Pulse Ox 100% on R/A; jl7 19:34 BP 116 / 66; Pulse 57; Resp 16; Pulse Ox 100% on R/A; bs1 20:30 BP 121 / 57; Pulse 47; Resp 16; Pulse Ox 100% on R/A; bs1 22:04 BP 121 / 67; Pulse 53; Resp 14; Pulse Ox 99% on R/A; bs1 23:00 BP 136 / 69; Pulse 54; Resp 13; Pulse Ox 95% on R/A; Pain 0/10; bs1 17:29 Body Mass Index 20.12 (49.90 kg, 157.48 cm) lk1 ED Course: 17:22 Patient arrived in ED. mr 17:27 Triage completed. lk1 17:32 Arm band placed on right wrist. lk1 17:33 Fredis Álvarez RN is Primary Nurse. jl7 17:41 Patient has correct armband on for positive identification. Placed in gown. Bed in low jl7 position. Call light in reach. Side rails up X 1. campus monitor on. Pulse ox on. NIBP on. Warm blanket given. 18:02 [facility]illi[facility]C [facility] snw 18:02 Jabari Blank MD is Attending Physician. snw 18:14 EKG done, by certified appliance service technician. reviewed by Jabari Blank MD. at1 19:08 Report given to ANGI Earl. jl7 19:25 Chest Pa And Lat (2 Views) XRAY In Process Unspecified. EDMS 19:54 Primary Nurse role handed off by Fredis Álvarez RN rg2 19:58 Inserted saline lock: 22 gauge in right antecubital area, using aseptic technique. bs1 19:58 No provider procedures requiring assistance completed. bs1 20:14 Mady Plaza RN is Primary Nurse. bs1 20:45 Leeroy Ma MD is Hospitalizing Provider. snw 20:[address] via stretcher. eh 20:56 Thorax Wo Con In Process Unspecified. EDMS 20:56 CT completed. Patient tolerated procedure well. Patient moved back from CT. eh 21:57 First set of blood cultures drawn ANGI Garcia, x2 attempts by Nurse Mady, x1 attempt bs1 by Ric Ring. 23:10 Patient admitted, IV remains in place. intact. bs1 Administered Medications: 18:44 Drug: Tussionex Pennkinetic ER 2.5 ml Route: PO; jl7 18:51 Follow up: Response: No adverse reaction jl7 20:55 CANCELLED (Duplicate Order): Zosyn 3.375 grams IVPB once over 60 mins; (mix in NS 100 snw mL) 22:10 Drug: Zosyn 3.375 grams Route: IVPB; Infused Over: 60 mins; Site: right antecubital; bs1 22:55 Follow up: IV Status: Completed infusion bs1 22:11 Drug: NS 0.9% 1000 ml Route: IV; Rate: 75 ml/hr; Site: right antecubital; bs1 22:55 Follow up: IV Status: Infusion continued upon admission bs1 Outcome: 20:47 Decision to Hospitalize by Provider. snw 23:09 Admitted to Tele accompanied by ric, via stretcher, room 405, with chart, Report bs1 called to ANGI Luke 23:09 Condition: stable 23:12 Patient left the ED. bs1 Signatures: Dispatcher [employer] EDDoug Branch rg2 Ivonne Gilliam, STUDIO CONTROL OPERATOR-C STUDIO CONTROL OPERATOR-Csnw Varsha Vazquez Harsh NogueiraParis henao, instructional interventionist EKG Tat1 Laura Cope RN RN lk1 Fredis Álvarez RN RN jl7 Mady Plaza, RN RN bs1 Corrections: (The following items were deleted from the chart) 17:29 17:25 Presenting complaint: Child states: "She has been on Amoxicillin. They put her on lk1 steroid and nebulizers. She isn't getting better and I don't want her to get pneumonia." lk1
--- NOTE | 2017-09-28 20:48 | EDPHYS ---
Physician Documentation [facility] Name: Sharri Wyman Age: 72 yrs Sex: Female : 1945 Arrival Date: 09/28/2017 Time: 17:22 Bed 16 Private MD: ED Physician Jabari Blank HPI: 09/28 18:39 This 72 yrs old Female presents to ER via Wheelchair with complaints of snw Congestion, Cough, Shortness Of Breath. 18:39 Onset: The symptoms/episode began/occurred gradually. Associated signs and symptoms: snw Pertinent positives: cough, PERSAUD. Modifying factors: The patient symptoms are alleviated by nebulizer treatment(s), rest, Oxygen. The patient has not experienced similar symptoms in the past. admitted to hospital 09/20/17. Started po steroids 2 days ago. Historical: - Allergies: 17:28 Bactrim; lk1 17:28 Cipro; lk1 17:28 Levaquin; lk1 - PMHx: 17:28 acid reflux; Cirrhosis; hx of stomace cancer; stomach cancer; UTI; lk1 17:48 Hospice; jl7 - PSHx: 17:28 Hysterectomy; stomach removal; lump removed from breast; Appendectomy; lk1 - Immunization history:: Adult Immunizations up to date. - Social history:: Smoking status: Patient/guardian denies using tobacco. ROS: 18:37 Constitutional: Negative for fever, chills, and weight loss, Eyes: Negative for injury, snw pain, redness, and discharge, ENT: Negative for injury, pain, and discharge, Neck: Negative for injury, pain, and swelling, Cardiovascular: Negative for chest pain, palpitations, and edema, Abdomen/GI: Negative for abdominal pain, nausea, vomiting, diarrhea, and constipation, Back: Negative for injury and pain, : Negative for injury, bleeding, discharge, and swelling, MS/Extremity: Negative for injury and deformity, Skin: Negative for injury, rash, and discoloration, Neuro: Negative for headache, weakness, numbness, tingling, and seizure. 18:37 Respiratory: Positive for cough, dyspnea on exertion. Exam: 18:36 Head/Face: Normocephalic, atraumatic. Eyes: Pupils equal round and reactive to light, snw extra-ocular motions intact. Lids and lashes normal. Conjunctiva and sclera are non-icteric and not injected. Cornea within normal limits. Periorbital areas with no swelling, redness, or edema. ENT: Nares patent. No nasal discharge, no septal abnormalities noted. Tympanic membranes are normal and external auditory canals are clear. Oropharynx with no redness, swelling, or masses, exudates, or evidence of obstruction, uvula midline. Mucous membranes moist. Neck: Trachea midline, no thyromegaly or masses palpated, and no cervical lymphadenopathy. Supple, full range of motion without nuchal rigidity, or vertebral point tenderness. No Meningismus. Chest/axilla: Normal chest wall appearance and motion. Nontender with no deformity. No lesions are appreciated. Cardiovascular: Regular rate and rhythm with a normal S1 and S2. No gallops, murmurs, or rubs. Normal PMI, no JVD. No pulse deficits. 18:36 Abdomen/GI: Soft, non-tender, with normal bowel sounds. No distension or tympany. No guarding or rebound. No evidence of tenderness throughout. Back: No spinal tenderness. No costovertebral tenderness. Full range of motion. Skin: Warm, dry with normal turgor. Normal color with no rashes, no lesions, and no evidence of cellulitis. MS/ Extremity: Pulses equal, no cyanosis. Neurovascular intact. Full, normal range of motion. Neuro: Awake and alert, GCS 15, oriented to person, place, time, and situation. Cranial nerves II-XII grossly intact. Motor strength 5/5 in all extremities. Sensory grossly intact. Cerebellar exam normal. Normal gait. 18:36 Constitutional: The patient appears awake, frail. 18:36 Respiratory: the patient does not display signs of respiratory distress, Respirations: normal, Breath sounds: rales, that are mild, are heard in the left lower lobe, rhonchi, that are mild, that are moderate, are heard in the right middle lobe. Vital Signs: 17:29 BP 112 / 68; Pulse 76; Resp 18; Temp 97.6(O); Pulse Ox 93% on R/A; Weight 49.9 kg (R); lk1 Height 5 ft. 2 in. (157.48 cm) (R); Pain 7/10; 17:53 BP 121 / 63; Pulse 59; Resp 16 S; Pulse Ox 100% on R/A; jl7 19:34 BP 116 / 66; Pulse 57; Resp 16; Pulse Ox 100% on R/A; bs1 20:30 BP 121 / 57; Pulse 47; Resp 16; Pulse Ox 100% on R/A; bs1 22:04 BP 121 / 67; Pulse 53; Resp 14; Pulse Ox 99% on R/A; bs1 23:00 BP 136 / 69; Pulse 54; Resp 13; Pulse Ox 95% on R/A; Pain 0/10; bs1 17:29 Body Mass Index 20.12 (49.90 kg, 157.48 cm) lk1 MDM: 18:09 Patient medically screened. franco 18:52 Data reviewed: vital signs, nurses notes. Data interpreted: Pulse oximetry: on room air snw is 100 %. Interpretation: normal. Counseling: I had a detailed discussion with the patient and/or guardian regarding: the historical points, exam findings, and any diagnostic results supporting the discharge/admit diagnosis, radiology results, the need for outpatient follow up. Awaiting: X-ray results. 20:44 Physician consultation: Leeroy Ma MD was called at 20:44, was contacted at 20:44, snw regarding admission, to the medical/surgical unit. and will see patient shortly. 09/28 19:35 Order name: CBC with Diff; Complete Time: 20:10 snw 09/28 19:35 Order name: Chem 7; Complete Time: 20:44 snw 09/28 19:44 Order name: AMMONIA snw 09/28 19:44 Order name: Procalcitonin snw 09/28 19:45 Order name: Ammonia; Complete Time: 20:27 EDMS 09/28 18:03 Order name: Chest Pa And Lat (2 Views) XRAY; Complete Time: 19:36 snw 09/28 19:45 Order name: Procalcitonin; Complete Time: 20:52 EDMS 09/28 20:17 Order name: Blood Culture EDMS 09/28 20:48 Order name: Thorax Wo Con; Complete Time: 22:03 EDMS 09/28 17:34 Order name: EKG; Complete Time: 17:35 jl7 09/28 17:34 Order name: EKG - Nurse/Tech; Complete Time: 18:06 jl7 Administered Medications: 18:44 Drug: Tussionex Pennkinetic ER 2.5 ml Route: PO; jl7 18:51 Follow up: Response: No adverse reaction jl7 20:55 CANCELLED (Duplicate Order): Zosyn 3.375 grams IVPB once over 60 mins; (mix in NS 100 snw mL) 22:10 Drug: Zosyn 3.375 grams Route: IVPB; Infused Over: 60 mins; Site: right antecubital; bs1 22:55 Follow up: IV Status: Completed infusion bs1 22:11 Drug: NS 0.9% 1000 ml Route: IV; Rate: 75 ml/hr; Site: right antecubital; bs1 22:55 Follow up: IV Status: Infusion continued upon admission bs1 Disposition: 09/29 07:38 Co-signature as Attending Physician, Jabari Blank MD I agree with the assessment and [facility] plan of care. Disposition: 09/28/17 20:47 Hospitalization ordered by Leeroy Ma for Inpatient Admission. Preliminary diagnosis are Pneumonia, unspecified organism, Dehydration, Acute kidney failure, unspecified. - Bed requested for Telemetry/MedSurg (Inpatient). - Status is Inpatient Admission. bs1 - Condition is Serious. - Problem is an acute exacerbation. - Symptoms have worsened. UTI on Admission? No Signatures: Dispatcher [employer] EDAline Bermudez, RN Jabari Child MD MD cha Therrien, Shelly, PROJECT ARCHIVIST-C PROJECT ARCHIVIST-Csnw Laura Cope, RN RN lk1 Fredis Álvarez RN RN jl7 Mady Plaza, RN RN bs1 Corrections: (The following items were deleted from the chart) 09/28 20:48 19:35 Thorax W/ Con+CT.RAD.BRZ ordered. EDMS EDMS 20:55 20:17 Zosyn 3.375 grams IVPB once over 60 mins; (mix in NS 100 mL) ordered. snw snw 20:55 20:55 Zosyn 3.375 grams IVPB once over 60 mins; (mix in NS 100 mL) ordered. snw snw 22:18 20:17 Blood Culture ordered. EDMS EDMS
--- NOTE | 2017-09-28 21:26 | RAD REPORT ---
EXAM DESCRIPTION: CT - Thorax Wo Con - 09/28/2017 8:57 pm CLINICAL HISTORY: sob COMPARISON: X-ray on the same date TECHNIQUE: Computed axial tomography of the chest was obtained. Contrast was not requested. All CT scans are performed using dose optimization technique as appropriate and may include automated exposure control or mA/KV adjustment according to patient size. FINDINGS: The evaluation of mediastinum, ervin and vessels is limited secondary to lack of IV contras t administration. A moderate to large right pleural effusion is present which is partially subpulmonic. A very small le ft pleural effusion is seen. Right lower lobe passive atelectasis is seen. Additional patchy alveolar opacities are present within the lungs bilaterally. A mild left lower lobe consolidation is seen. Calcified mediastinal and calcified hilar lymph nodes are present. A cirrhotic liver is visualized. Gallstones are present. A small amount of ascites is visualized with in the upper abdomen IMPRESSION: Moderate to large right pleural effusion. Mild left lower lobe consolidation with patchy bilateral alveolar opacities probably representing pne umonia
[2017-09-28] MEDS ORDERED: NA CHLORIDE 0.9% 1,000 ML ONE (21:57)
--- NOTE | 2017-09-28 22:52 | P.HP ---
Certification for Inpatient Patient admitted to: Inpatient With expected LOS: >2 Midnights Practitioner: I am a practitioner with admitting privileges, knowledge of patient current condition, hospital course, and medical plan of care. Services: Services provided to patient in accordance with Admission requirements found in Title 42 Section 412.3 of the Code of Federal Regulations Patient History Date of Service: 09/28/17 Reason for admission: pneumonia History of Present Illness: Ms Wyman is a 72 years old woman with history of gastric cancer, liver cirrhosis, DM II who is under hospice care since last month, came to ED complaining of productive cough associated with progressive SOB. Her daughter who is at the bedside, states that since 1 week ago she has been getting worse. No history of fever or chills. The patient was started on Augmentin and oral prednisne by hospice staff. Since the patient was not getting better, her daughter has decided to bring the patient to ED and let her treated for her current condition. She also states that will take the patient off hospice once discharge. Allergies levofloxacin [From Levaquin] Allergy (Mild, Verified 09/14/17 23:11) Anaphylaxis ciprofloxacin [From Cipro] Allergy (Verified 09/14/17 23:11) Unknown sulfamethoxazole [From Bactrim] Allergy (Verified 09/14/17 23:11) Unknown trimethoprim [From Bactrim] Allergy (Verified 09/14/17 23:11) Unknown Home Medications: Rifaximin [Xifaxan] 550 mg PO BID 10/31/13 Ferrous Sulfate [Ferrous Sulfate*] 325 mg PO DAILY 10/16/16 Furosemide [Lasix*] 40 mg PO DAILY #30 tab 05/07/17 Alendronate Sodium 70 mg PO Q7D 09/14/17 Cholecalciferol (Vitamin D3) [Vitamin D3] 2,000 unit PO BID 09/14/17 Cyanocobalamin/Folic Acid [Ra Vit B-12 1,000 Mcg Lozenge] 1 tab PO DAILY Spironolactone [Aldactone*] 50 mg PO DAILY 09/14/17 Lactulose [Cephulac*] 30 ml PO TID #1 bottle 09/16/17 Pantoprazole [Protonix Tab*] 40 mg PO BID #60 tab 09/16/17 - Past Medical/Surgical History Diabetic: No -: FATTY LIVER -: Chronic UTI -: Stomach Cancer -: encephalopathy -: cirrhosis -: THRUSH -: Carotid Surgery -: Abdominal Surgery -: Breast Cyst Removal -: Hysterectomy -: appendectomy -: Cataract Surgery of right eye - Family History Mother Notes: OSTEOPOROSIS Father -: Hypertension, Diabetes Brother -: Stroke, Cancer Sister -: Liver disease - Social History Alcohol use: No CD- Drugs: No Caffeine use: No Place of Residence: Home Review of Systems 10-point ROS is otherwise unremarkable Physical Examination - Physical Exam General: Alert, In no apparent distress HEENT: Atraumatic, PERRLA, Mucous membr. moist/pink, EOMI, Scleral icterus Neck: Supple, 2+ carotid pulse no bruit, No LAD, Without JVD or thyroid abnormality Respiratory: Diminished (right base), Crackles/rales (bilateral) Cardiovascular: Regular rate/rhythm, Normal S1 S2 Gastrointestinal: Normal bowel sounds, No tenderness Musculoskeletal: No tenderness Integumentary: No rashes Neurological: Normal speech, Normal tone, Normal affect Lymphatics: No axilla or inguinal lymphadenopathy - Studies Laboratory Data (last 24 hrs) 09/28/17 19:50: Sodium 127 L, Potassium 4.7, BUN 61 H D, Creatinine 2.34 H D, Glucose 137 H 09/28/17 19:50: WBC 11.1 H D, Hgb 8.9 L, Hct 26.2 L, Plt Count 150 L Assessment and Plan - Problems (Diagnosis) (1) Pneumonia Current Visit: Yes Status: Acute Qualifiers: Pneumonia type: due to unspecified organism Laterality: bilateral Lung location: lower lobe of lung Qualified Code(s): J18.1 - Lobar pneumonia, unspecified organism (2) Pleural effusion Current Visit: Yes Status: Acute (3) Acute on chronic renal failure Onset Date: 09/15/17 Current Visit: No Status: Acute Qualifiers: Acute renal failure type: unspecified Chronic kidney disease stage: stage 3 (moderate) Qualified Code(s): N17.9 - Acute kidney failure, unspecified; N18.3 - Chronic kidney disease, stage 3 (moderate); N18.3 - Chronic kidney disease, stage 3 (moderate) (4) Cirrhosis of liver Onset Date: 02/06/15 Current Visit: No Status: Chronic Qualifiers: Hepatic cirrhosis type: other cirrhosis Qualified Code(s): K74.69 - Other cirrhosis of liver - Plan Ms Wyman will be admitted to the hospital due to bilateral pneumonia. She has leukocytosis, elevated procalcitonin. No fever. CT chest remarkable for bilateral opacities and right moderate pleural effusion. Will continue empiric treatment with Zosyn. Blood cultures in process. I have discussed advance direction with one of her daughters who is also POA, and they want to be full code. - Advance Directives Does patient have a Living Will: No Does patient have a Durable POA for Healthcare: Yes - Code Status/Comfort Care Code Status Assessed: Yes Code Status: Full Code
[2017-09-28] MEDS ORDERED: IPRATROPIUM BROM 0.5MG/2.5ML NEB PRN (23:23)
[2017-09-28] MEDS ORDERED: ONDANSETRON 4 MG/2 ML VIAL IV PRN (23:23)
[2017-09-28] MEDS ORDERED: NA CHLORIDE 0.9% 1,000 ML IV SCH (23:23)
[2017-09-28] MEDS ORDERED: ALBUTEROL 2.5 MG/3 ML NEB SOL NEB PRN (23:23)
[2017-09-29 01:22] VITALS: BMI 18.0
[2017-09-29 04:43] LABS: Potassium 4.7 mEq/L (3.6-5.0)
[2017-09-29 04:45] LABS: Absolute Lymphocytes (CBC) 0.4 K/uL (0.7-4.9); Absolute Monocytes 0.4 K/uL (0.1-1.3); Basophils % 0.1 % (0-1.3); Lymphocytes % 3.7 % (15.3-44.8); MCH 32.6 pg (27.0-35.0); MPV 9.5 fL (7.6-11.3); Monocytes % 3.6 % (3.3-12.3)
[2017-09-29 05:09] LABS: Blood Morphology Comment NOTED (NOT SEEN); Burr Cells 1+; Platelet Estimate DECR; Poikilocytosis 1+; Rouleau NOTED; Target Cells 1+; Toxic Granulation 1+; Urine White Blood Cell Casts OK
[2017-09-29] MEDS ORDERED: NA CHLORIDE 0.9% 1,000 ML IV SCH (06:50)
[2017-09-29] MEDS: FOLIC ACID PO SCH (09:00)
[2017-09-29] MEDS: CYANOCOBALAMIN PO SCH (09:00)
[2017-09-29] MEDS ORDERED: SPIRONOLACTONE 25 MG TABLET PO SCH (09:00)
[2017-09-29] MEDS: NA CHLORIDE 0.9% 1,000 ML IV SCH ×2 (09:57→22:12)
[2017-09-29] MEDS: VITAMIN D 1000 UNIT TAB PO SCH ×2 (09:58→21:00)
[2017-09-29] MEDS: PANTOPRAZOLE 40MG TABLET PO SCH ×2 (09:58→21:00)
[2017-09-29] MEDS: Rifaximin 550 MG Tab PO SCH ×2 (09:58→21:00)
[2017-09-29] MEDS: FUROSEMIDE 40 MG TABLET PO SCH (09:59)
[2017-09-29] MEDS: FERROUS SULFATE 325 MG TAB PO SCH (09:59)
[2017-09-29] MEDS: LACTULOSE 20 GM/30 ML UCUP PO SCH ×3 (10:00→21:00)
--- NOTE | 2017-09-29 10:09 | EKG ---
Test Date: 2017-09-28 Test Time: 18:00:06 Ballistics Expert: RJ MEASUREMENT RESULTS: Intervals: Rate: 63 MS: 150 QRSD: 84 QT: 434 QTc: 444 Jet: P: 12 MS: 150 QRS: -24 T: 34 INTERPRETIVE STATEMENTS: Normal sinus rhythm Normal ECG Compared to ECG 09/14/2017 17:17:44 Myocardial infarct finding no longer present Electronically Signed On 09-29-17 10:07:48 CDT by Tha Ballard
[2017-09-29] MEDS: SODIUM BICARB 325 MG TAB PO SCH ×3 (10:13→21:00)
[2017-09-29] MEDS: PIPER/TAZO/NS 2.25gm 2.25 GM/50 ML BAG IVPB SCH ×2 (10:14→16:16)
--- NOTE | 2017-09-29 11:24 | ECHO ---
HEIGHT: 5 ft 2 in WEIGHT: 98 lb 9.6 oz DATE OF STUDY: 09/29/[address]: Dewayne Wynn DO 2-DIMENSIONAL: YES M.MODE: YES DOPPLER: YES COLOR FLOW: YES TDS: NO PORTABLE: NO DEFINITY: NO BUBBLE STUDY: NO DIAGNOSIS: SHORTNESS OF BREATH CARDIAC HISTORY: CATHERIZATION: NO SURGERY: NO PROSTHETIC VALVE: NO PACEMAKER: NO MEASUREMENTS (cm) DIASTOLIC (NORMALS) SYSTOLIC (NORMALS) IVSd 1.0 (0.6-1.2) LA Diam 3.6 (1.9-4.0) LVEF 78% LVIDd 4.2 (3.5-5.7) LVIDs 2.2 (2.0-3.5) %FS 46% LVPWd 1.0 (0.6-1.2) Ao Diam 2.5 (2.0-3.7) 2 DIMENSIONAL ASSESSMENT: RIGHT ATRIUM: NORMAL LEFT ATRIUM: NOARMAL RIGHT VENTRICLE: NORMAL LEFT VENTRICLE: NORMAL TRICUSPID VALVE: NORMAL MITRAL VALVE: MITRAL ANNULAR CALCIFICATION PULMONIC VALVE: NORMAL AORTIC VALVE: NORMAL PERICARDIAL EFFUSION: NONE AORTIC ROOT: NORMAL LEFT VENTRICULAR WALL MOTION: NORMAL. DOPPLER/COLOR FLOW: MILD TRICUSPID REGURGITATION. COMMENTS: MILD TRICUSPID REGURGITATION - NORMAL RIGHT VENTRICULAR SYSTOLIC PRESSURE. MITRAL ANNULAR CALCIFICATION. NORMAL LEFT VENTRICULAR SIZE AND FUNCTION. TECHNOLOGIST: JOSE GALVAN
--- NOTE | 2017-09-29 13:58 | P.PN ---
Subjective Date of Service: 09/29/17 Chief Complaint: pneumonia Subjective: Doing well Physical Examination - Vital Signs Temperature: 97.0 F Blood Pressure: 170/67 Pulse: 52 Respirations: 16 Pulse Ox (%): 98 - Physical Exam General: Alert, In no apparent distress, Cooperative HEENT: Atraumatic Neck: Supple Respiratory: Crackles/rales (Bilateral) Cardiovascular: Normal pulses, Regular rate/rhythm Gastrointestinal: Normal bowel sounds, Soft and benign, Non-distended, No masses , No rebound, No guarding Musculoskeletal: No tenderness, No warmth Integumentary: Other (Muscle wasting to the upper lower extremities bilateral) - Studies Laboratory Data (last 24 hrs) 09/28/17 19:50: Sodium 127 L, Potassium 4.7, BUN 61 H D, Creatinine 2.34 H D, Glucose 137 H 09/28/17 19:50: WBC 11.1 H D, Hgb 8.9 L, Hct 26.2 L, Plt Count 150 L Medications List Reviewed: Yes Assessment & Plan - Problems (Diagnosis) (1) Pleural effusion Current Visit: Yes Status: Acute Plan: Patient with moderate right-sided pleural effusion. Patient seen by pulmonology. No intervention needed at this time. Will continue with antibiotic treatment for infection. This may be malignant. Patient currently in hospice with history of gastric carcinoma. Patient also with history of liver cirrhosis (2) Pneumonia Current Visit: Yes Status: Acute Plan: Bilateral pneumonia noted. Will continue with antibiotic therapy. Will monitor chest x-ray. Will wean off oxygen. Qualifiers: Pneumonia type: due to unspecified organism Laterality: bilateral Lung location: lower lobe of lung Qualified Code(s): J18.1 - Lobar pneumonia, unspecified organism (3) Acute on chronic renal failure Onset Date: 09/15/17 Current Visit: No Status: Acute Plan: Case discussed with nephrology. Nephrology has adjusted medications. Will reduce IV fluids. Qualifiers: Acute renal failure type: unspecified Chronic kidney disease stage: stage 3 (moderate) Qualified Code(s): N17.9 - Acute kidney failure, unspecified; N18.3 - Chronic kidney disease, stage 3 (moderate); N18.3 - Chronic kidney disease, stage 3 (moderate) (4) Anemia Onset Date: 10/18/16 Current Visit: No Status: Chronic Plan: Patient with anemia of chronic disease. Will monitor this closely. Will review previous information. Qualifiers: Anemia type: other cause Other causes of anemia: chronic disease, other Qualified Code(s): D63.8 - Anemia in other chronic diseases classified elsewhere (5) Cirrhosis of liver Onset Date: 02/06/15 Current Visit: No Status: Chronic Plan: Will continue with her medication. Will monitor for hepatic encephalopathy. Case discussed at length with GI in the past. Patient not a candidate for liver transplant. Qualifiers: Hepatic cirrhosis type: other cirrhosis Qualified Code(s): K74.69 - Other cirrhosis of liver (6) History of gastric cancer Current Visit: No Status: Chronic Plan: Patient with history of gastric carcinoma. Patient also with history of gastroparesis. Patient seen by GI. (7) Hyponatremia Current Visit: Yes Status: Acute Plan: Medications adjusted by Nephrology. Discharge Plan: Home Plan to discharge in: 72 Hours Time Spent Managing Pts Care (In Minutes): 55
[2017-09-29] MEDS: ENOXAPARIN 30 MG/0.3 ML SQ SCH (16:18)
--- NOTE | 2017-09-29 21:54 | P.CNS ---
Date of Consult: 09/29/17 Reason for Consult: CKD Requesting Physician: Dewayne Wynn Chief Complaint: pneumonia History of Present Illness: 72 yo HF CKD, HTN presented to the ER with 1 weeks of moderate, progressive dyspnea with associated cough. No modifying fx. Ms Wyman is a 72 years old woman with history of gastric cancer, liver cirrhosis, DM II who is under hospice care since last month, came to ED complaining of productive cough associated with progressive SOB. Her daughter who is at the bedside, states that since 1 week ago she has been getting worse. No history of fever or chills. The patient was started on Augmentin and oral prednisne by hospice staff. Since the patient was not getting better, her daughter has decided to bring the patient to ED and let her treated for her current condition. She also states that will take the patient off hospice once discharge. 18:39 This 72 yrs old Female presents to ER via Wheelchair with complaints of snw Congestion, Cough, Shortness Of Breath. 18:39 Onset: The symptoms/episode began/occurred gradually. Associated signs and symptoms: snw Pertinent positives: cough, PERSAUD. Modifying factors: The patient symptoms are alleviated by nebulizer treatment(s), rest, Oxygen. The patient has not experienced similar symptoms in the past. admitted to hospital 09/20/17. Started po steroids 2 days ago. Allergies levofloxacin [From Levaquin] Allergy (Mild, Verified 09/14/17 23:11) Anaphylaxis ciprofloxacin [From Cipro] Allergy (Verified 09/14/17 23:11) Unknown sulfamethoxazole [From Bactrim] Allergy (Verified 09/14/17 23:11) Unknown trimethoprim [From Bactrim] Allergy (Verified 09/14/17 23:11) Unknown Home medications list reviewed: Yes Home Medications: Rifaximin [Xifaxan] 550 mg PO BID 10/31/13 Ferrous Sulfate [Ferrous Sulfate*] 325 mg PO DAILY 10/16/16 Furosemide [Lasix*] 40 mg PO DAILY #30 tab 05/07/17 Alendronate Sodium 70 mg PO Q7D 09/14/17 Cholecalciferol (Vitamin D3) [Vitamin D3] 2,000 unit PO BID 09/14/17 Cyanocobalamin/Folic Acid [Ra Vit B-12 1,000 Mcg Lozenge] 1 tab PO DAILY Spironolactone [Aldactone*] 50 mg PO DAILY 09/14/17 Lactulose [Cephulac*] 30 ml PO TID #1 bottle 09/16/17 Pantoprazole [Protonix Tab*] 40 mg PO BID #60 tab 09/16/17 - Past Medical/Surgical History Diabetic: No -: FATTY LIVER -: Chronic UTI -: Stomach Cancer -: encephalopathy -: cirrhosis -: THRUSH -: Carotid Surgery -: Abdominal Surgery -: Breast Cyst Removal -: Hysterectomy -: appendectomy -: Cataract Surgery of right eye - Family History Mother Notes: OSTEOPOROSIS Father Medical History: Hypertension, Diabetes Brother Medical History: Stroke, Cancer Sister Medical History: Liver disease - Social History Smoking Status: Never smoker Alcohol use: No CD- Drugs: No Caffeine use: No Place of Residence: Home Review of Systems 10-point ROS is otherwise unremarkable General: Weakness, Malaise Respiratory: SOB with Excertion Physical Examination Temp Pulse Resp BP Pulse Ox 98.1 F 54 17 132/62 97 09/29/17 20:00 09/29/17 20:00 09/29/17 20:00 09/29/17 20:00 09/29/17 20:00 General: Alert, Cooperative HEENT: Normocephalic, Mucous membr. moist/pink Neck: Supple Respiratory: Clear to auscultation bilaterally, Diminished Cardiovascular: Regular rate/rhythm, No rubs, Edema Gastrointestinal: Hypoactive, Soft and benign, Non-distended Musculoskeletal: No clubbing, No contractures Integumentary: No rashes, No cyanosis Neurological: Normal speech Blood work reviewed in the chart. Na 127; Cr 2.34 Imagings Data: EXAM DESCRIPTION: CT - Thorax Wo Con - 09/28/2017 8:57 pm CLINICAL HISTORY: sob COMPARISON: X-ray on the same date TECHNIQUE: Computed axial tomography of the chest was obtained. Contrast was not requested. All CT scans are performed using dose optimization technique as appropriate and may include automated exposure control or mA/KV adjustment according to patient size. FINDINGS: The evaluation of mediastinum, ervin and vessels is limited secondary to lack of IV contrast administration. A moderate to large right pleural effusion is present which is partially subpulmonic. A very small left pleural effusion is seen. Right lower lobe passive atelectasis is seen. Additional patchy alveolar opacities are present within the lungs bilaterally. A mild left lower lobe consolidation is seen. Calcified mediastinal and calcified hilar lymph nodes are present. A cirrhotic liver is visualized. Gallstones are present. A small amount of ascites is visualized within the upper abdomen IMPRESSION: Moderate to large right pleural effusion. Mild left lower lobe consolidation with patchy bilateral alveolar opacities probably representing pneumonia Conclusions/Impression: A/ EMY/ CKD III. Acidosis. Hyponatremia. DM II with CKD. HTN with CKD. Hypocalcemia. Anemia in chronic illness. Thrombocytopenia. Cirrhosis of the liver. RLL PNA. P/ Continue current POC and Medications. Increase IVF. Start sodium bicarbonate. Agree with abx. No NSAIDs. AM labs. Daily weight. Thank you kindly for the consultation.
[2017-09-30] MEDS: PIPER/TAZO/NS 2.25gm 2.25 GM/50 ML BAG IVPB SCH ×3 (01:11→16:40)
[2017-09-30 06:01] LABS: Absolute Lymphocytes (CBC) 0.9 K/uL (0.7-4.9); Absolute Monocytes 0.7 K/uL (0.1-1.3); Absolute Neutrophil 8.5 K/uL (1.8-8.0); Basophils % 0.1 % (0-1.3); Hematocrit 25.8 % (36.0-45.0); Lymphocytes % 8.7 % (15.3-44.8); MCV 99.4 fL (80-100); MPV 9.1 fL (7.6-11.3); Monocytes % 6.6 % (3.3-12.3)
[2017-09-30 06:10] LABS: Magnesium 2.1 mg/dL (1.8-2.5); Potassium 5.3 mEq/L (3.6-5.0)
--- NOTE | 2017-09-30 08:23 | P.PN ---
Subjective Date of Service: 09/30/17 Primary Care Provider: Hospice Chief Complaint: pneumonia Subjective: Doing well (Patient doing better today. Still requiring oxygen) Physical Examination - Vital Signs Temperature: 97.0 F Blood Pressure: 151/62 Pulse: 51 Respirations: 18 Pulse Ox (%): 98 - Physical Exam General: Alert, In no apparent distress, Oriented x3, Cooperative, Cachectic HEENT: Atraumatic Neck: Supple Respiratory: Crackles/rales (Crackles to the bases) Cardiovascular: Normal pulses, Regular rate/rhythm Gastrointestinal: Normal bowel sounds, Soft and benign, Non-distended, No masses , No rebound, No guarding Musculoskeletal: No tenderness, No warmth Integumentary: No warmth, No cyanosis, Other (Muscle wasting to the upper lower extremities) Neurological: Normal speech, Normal strength at 5/5 x4 extr, Normal tone - Studies Medications List Reviewed: Yes Assessment & Plan - Problems (Diagnosis) (1) Pleural effusion Current Visit: Yes Status: Acute Plan: Patient with moderate right-sided pleural effusion. Patient seen by pulmonology. No intervention needed at this time. Will continue with antibiotic treatment for infection. This may be malignant. Patient currently in hospice with history of gastric carcinoma, liver cirrhosis. Will continue with oxygen. Will wean off oxygen. Will recheck x-ray. Will monitor closely. Advanced directives discussed again with patient and family member. Patient desires to have this addressed by family. Family is to meet again later. Risks and benefits addressed concerning CPR and hospice. They are to reconvene and decide on this in more detail. They understand that her condition is terminal and that he will not improve. I will be out of town this weekend. I will have Dr. Reis cover for me. (2) Pneumonia Current Visit: Yes Status: Acute Plan: Bilateral pneumonia noted. Will continue with antibiotic therapy. Will monitor chest x-ray. Will wean off oxygen. Will discuss further with pulmonology. Qualifiers: Pneumonia type: due to unspecified organism Laterality: bilateral Lung location: lower lobe of lung Qualified Code(s): J18.1 - Lobar pneumonia, unspecified organism (3) Acute on chronic renal failure Onset Date: 09/15/17 Current Visit: No Status: Acute Plan: Case discussed with nephrology. Nephrology has adjusted medications. Will reduce IV fluids. Potassium elevated today. Will recheck. Patient may need Kayexalate. Qualifiers: Acute renal failure type: unspecified Chronic kidney disease stage: stage 3 (moderate) Qualified Code(s): N17.9 - Acute kidney failure, unspecified; N18.3 - Chronic kidney disease, stage 3 (moderate); N18.3 - Chronic kidney disease, stage 3 (moderate) (4) Anemia Onset Date: 10/18/16 Current Visit: No Status: Chronic Plan: Patient with anemia of chronic disease. Will monitor this closely. Will review previous information. Qualifiers: Anemia type: other cause Other causes of anemia: chronic disease, other Qualified Code(s): D63.8 - Anemia in other chronic diseases classified elsewhere (5) Cirrhosis of liver Onset Date: 02/06/15 Current Visit: No Status: Chronic Plan: Will continue with her medication. Will monitor for hepatic encephalopathy. Case discussed at length with GI in the past. Patient not a candidate for liver transplant. Qualifiers: Hepatic cirrhosis type: other cirrhosis Qualified Code(s): K74.69 - Other cirrhosis of liver (6) History of gastric cancer Current Visit: No Status: Chronic Plan: Patient with history of gastric carcinoma. Patient also with history of gastroparesis. Patient seen by GI. (7) Hyponatremia Current Visit: Yes Status: Acute Plan: Medications adjusted by Nephrology. (8) Hyperkalemia Current Visit: Yes Status: Acute Plan: Will recheck potassium. Patient may require Kayexalate. Discharge Plan: Home Plan to discharge in: Greater than 2 days Time Spent Managing Pts Care (In Minutes): 55
[2017-09-30] MEDS: PANTOPRAZOLE 40MG TABLET PO SCH (09:00)
[2017-09-30] MEDS: CYANOCOBALAMIN PO SCH (09:00)
[2017-09-30] MEDS: FOLIC ACID PO SCH (09:00)
[2017-09-30] MEDS: VITAMIN D 1000 UNIT TAB PO SCH (09:07)
[2017-09-30] MEDS: FUROSEMIDE 40 MG TABLET PO SCH (09:08)
[2017-09-30] MEDS: FERROUS SULFATE 325 MG TAB PO SCH (09:09)
[2017-09-30] MEDS: SODIUM BICARB 325 MG TAB PO SCH ×2 (09:09→13:55)
[2017-09-30] MEDS: Rifaximin 550 MG Tab PO SCH (09:10)
[2017-09-30] MEDS: LACTULOSE 20 GM/30 ML UCUP PO SCH ×2 (09:10→13:54)
--- NOTE | 2017-09-30 09:13 | RAD REPORT ---
EXAM DESCRIPTION: RAD - Chest Single View - 09/30/2017 7:11 am CLINICAL HISTORY: Shortness of breath COMPARISON: 09/28/2017 FINDINGS: Portable technique limits examination quality. Right inferior hemithorax pleural and parenchymal opacification is again noted appearing mildly progr essive since the comparative study. Ill-defined opacity medial left lung base is also no appearing si milar prior study. The heart is mildly prominent in size. No displaced fractures. IMPRESSION: Mild worsening in right lung base aeration since comparative study.
[2017-09-30] MEDS ORDERED: BENZONATATE 100 MG CAP PO PRN (09:22)
[2017-09-30] MEDS: NA CHLORIDE 0.9% 1,000 ML IV SCH (11:32)
--- NOTE | 2017-09-30 14:29 | P.PN ---
Subjective Date of Service: 09/30/17 Primary Care Provider: Hospice Chief Complaint: pneumonia Subjective: Improving (Patient is 72 years of age admitted with cough congestion for the past 2 weeks patient was treated with antibiotics and steroids no relief no prior history of cardiopulmonary problems history of gastric cancer that was treated with partial resection radiation and chemotherapy in 2010 patient was in hospice for the past 2 weeks) Review of Systems General: Weakness Respiratory: Cough, Shortness of Breath Physical Examination - Vital Signs Temperature: 97.0 F Blood Pressure: 149/77 Pulse: 51 Respirations: 18 Pulse Ox (%): 92 - Physical Exam General: Alert, Cooperative Neck: Supple Respiratory: Clear to auscultation bilaterally, Diminished (Diminished on the right side), Crackles/rales Cardiovascular: No edema, Normal S1 S2 Gastrointestinal: Normal bowel sounds, Soft and benign - Studies Medications List Reviewed: Yes Assessment & Plan - Problems (Diagnosis) (1) Pleural effusion Current Visit: Yes Status: Acute Plan: Patient is 72 years of age admitted with a 2 week history of cough congestion she does have a right-sided pleural effusion ground-glass changes bilaterally more prominent on the right side mildly elevated white count the probably has a pneumonia with a pleural effusion in addition patient has cirrhosis of the liver from fatty liver renal function is improving patient is mildly hypernatremic patient has a mild normocytic anemia cultures are so far negative patient has normal left ventricular function I have ordered bilateral decubitus of the the chest use which any hypoxic on room air patient is also high risk for thromboembolism due to underlying debility unable to do a CT angiogram due to elevated creatinine high risk for anticoagulation due to underlying cirrhosis effusion could also be from her underlying cirrhosis patient appears to have a new onset of right-sided pleural effusion she also has advanced cirrhotic liver disease and has had paracentesis before. He is ambulating can be discharged home on Augmentin and doxycycline to cover for the possibility of an Mr SA infection as also qualify for home oxygen up in the clinic the consider thoracentesis Discharge Plan: Home - Code Status/Comfort Care Code Status Assessed: Yes
[2017-09-30 15:48] VITALS: BP 156/80; TEMP 97.2
--- NOTE | 2017-09-30 16:02 | P.DS ---
Admission Date: 09/28/17 Discharge Date: 09/30/17 Primary Care Provider: Hospice Disposition: HOSPICE-HOME Discharge Condition: GOOD Reason for Admission: pneumonia Consultations: Pulmonology-Dr. Reis Nephrology-Dr. Villarreal Procedures: Echocardiogram: Ejection fraction 78%. CT scan: FINDINGS: The evaluation of mediastinum, ervin and vessels is limited secondary to lack of IV contrast administration. A moderate to large right pleural effusion is present which is partially subpulmonic. A very small left pleural effusion is seen. Right lower lobe passive atelectasis is seen. Additional patchy alveolar opacities are present within the lungs bilaterally. A mild left lower lobe consolidation is seen. Calcified mediastinal and calcified hilar lymph nodes are present. A cirrhotic liver is visualized. Gallstones are present. A small amount of ascites is visualized within the upper abdomen IMPRESSION: Moderate to large right pleural effusion. Mild left lower lobe consolidation with patchy bilateral alveolar opacities probably representing pneumonia - Problems (1) Pleural effusion Current Visit: Yes Status: Acute (2) Pneumonia Current Visit: Yes Status: Acute Qualifiers: Pneumonia type: due to unspecified organism Laterality: bilateral Lung location: lower lobe of lung Qualified Code(s): J18.1 - Lobar pneumonia, unspecified organism (3) Acute on chronic renal failure Onset Date: 09/15/17 Current Visit: No Status: Acute Qualifiers: Acute renal failure type: unspecified Chronic kidney disease stage: stage 3 (moderate) Qualified Code(s): N17.9 - Acute kidney failure, unspecified; N18.3 - Chronic kidney disease, stage 3 (moderate); N18.3 - Chronic kidney disease, stage 3 (moderate) (4) Anemia Onset Date: 10/18/16 Current Visit: No Status: Chronic Qualifiers: Anemia type: other cause Other causes of anemia: chronic disease, other Qualified Code(s): D63.8 - Anemia in other chronic diseases classified elsewhere (5) Cirrhosis of liver Onset Date: 02/06/15 Current Visit: No Status: Chronic Qualifiers: Hepatic cirrhosis type: other cirrhosis Qualified Code(s): K74.69 - Other cirrhosis of liver (6) History of gastric cancer Current Visit: No Status: Chronic (7) Hyponatremia Current Visit: Yes Status: Acute (8) Hyperkalemia Current Visit: Yes Status: Acute Brief History of Present Illness: 72-year-old female presented ER with increasing shortness of breath. The patient is a hospice patient with history of gastric cancer, end-stage liver disease, chronic renal disease, GERD with gastroparesis. The patient had been recently treated for pneumonia. Her condition did not improve. Patient was brought in to the ER after daughter requested the patient be seen. The patient was found to have bilateral pneumonia with right pleural effusion. The patient was admitted for treatment. Hospital Course: The patient presented with bilateral pneumonia and right pleural effusion. The patient was evaluated by pulmonology. The patient was treated with IV antibiotic therapy. A thoracentesis was entertained but risks outweigh the benefits. Risks including bleeding, infection, and pneumothorax. This was addressed in detail with the patient and family. The patient did not desire this. She actually did not want to come to the hospital but was brought in after daughter requested. At discharge advanced directives were addressed in detail with the patient and daughter Comfort were present. This included the charge nurse. The patient was very clear that she did not want to be resuscitated in the event of cardiac arrest. This was addressed in detail. The patient also was very clear that she wanted to continue with hospice. She went to be made comfortable when the time came. As this was understood and explained, arrangements for hospice at home will be continued. An out-of- hospital DNR will be made. Questions concerning hospice were addressed in detail. At discharge patient will continue with Augmentin 250 mg 1 pill daily and doxycycline 100 mg 1 pill twice daily for 14 days. Patient will continue with oxygen to maintain sats above 90%. Patient will continue with hospice for comfort measures. Patient with end-stage liver cirrhosis. She had been to hepatology in the past. Patient desired no significant intervention including liver transplant. This was also made clear during my conversation with the patient and family. At discharge, patient will continue with Xifaxan and Lactulose. Patient with GERD and history of gastroparesis. Patient will continue with Protonix 40 mg 1 pill twice daily. Patient presented with acute on chronic renal disease. Patient with chronic disease. Patient was evaluated by nephrology. This remained stable during her stay. At discharge she will continue with medication. Hospice will be arranged prior to discharge. Patient to continue with comfort measures. Vital Signs/Physical Exam: Temp Pulse Resp BP Pulse Ox 97.2 F 62 18 156/80 H 94 09/30/17 15:47 04/06/18 15:47 09/30/17 15:47 09/30/17 15:47 09/30/17 15:47 General: Alert, In no apparent distress, Oriented x3, Cachectic HEENT: Atraumatic Neck: Supple Respiratory: Crackles/rales (Bilateral) Cardiovascular: Normal pulses, Regular rate/rhythm Gastrointestinal: Normal bowel sounds, Soft and benign, Non-distended, No tenderness, No masses, No rebound, No guarding Musculoskeletal: Other (Muscle wasting to the upper and lower extremities including face) Integumentary: No erythema, No warmth, No cyanosis Neurological: Normal speech, Normal strength at 5/5 x4 extr, Normal tone, Normal affect Laboratory Data at Discharge: WBC 10.1 K/uL (4.3-10.9) D 09/30/17 05:43 Hgb 8.6 g/dL (12.0-15.0) L 09/30/17 05:43 Hct 25.8 % (36.0-45.0) L 09/30/17 05:43 Plt Count 113 K/uL (152-406) L 09/30/17 05:43 Sodium 127 mEq/L (135-145) L 09/30/17 05:43 Potassium 5.0 mEq/L (3.6-5.0) 09/30/17 08:20 BUN 59 mg/dL (6-20) H 09/30/17 05:43 Creatinine 2.06 mg/dL (0.44-1.00) H 09/30/17 05:43 Glucose 103 mg/dL (65-120) 09/30/17 05:43 Magnesium 2.1 mg/dL (1.8-2.5) 09/30/17 05:43 Home Medications: Rifaximin [Xifaxan] 550 mg PO BID 10/31/13 Ferrous Sulfate [Ferrous Sulfate*] 325 mg PO DAILY 10/16/16 Furosemide [Lasix*] 40 mg PO DAILY #30 tab 05/07/17 Alendronate Sodium 70 mg PO Q7D 09/14/17 Cholecalciferol (Vitamin D3) [Vitamin D3] 2,000 unit PO BID 09/14/17 Cyanocobalamin/Folic Acid [Ra Vit B-12 1,000 Mcg Lozenge] 1 tab PO DAILY Lactulose [Cephulac*] 30 ml PO TID #1 bottle 09/16/17 Pantoprazole [Protonix Tab*] 40 mg PO BID #60 tab 09/16/17 Amox Tr/Potassium Clavulanate [Augmentin 250-62.5 Tab Chew] 1 each PO DAILY #14 tab.chew 09/30/17 Benzonatate [Tessalon Perle*] 200 mg PO TID PRN #15 cap 09/30/17 Doxycycline Hyclate 100 mg PO BID #28 tablet 09/30/17 Na Bicarb Tab [Sodium Bicarb 325 MG Tab*] 650 mg PO TID #60 tab 09/30/17 New Medications: Amox Tr/Potassium Clavulanate [Augmentin 250-62.5 Tab Chew] 1 each PO DAILY #14 tab.chew Benzonatate [Tessalon Perle*] 200 mg PO TID PRN #15 cap PRN Reason: Cough Doxycycline Hyclate 100 mg PO BID #28 tablet Na Bicarb Tab [Sodium Bicarb 325 MG Tab*] 650 mg PO TID #60 tab Patient Discharge Instructions: 1. Patient will return home with hospice. 2. Patient presented with bilateral pneumonia and right pleural effusion. Patient evaluated by pulmonology. No intervention needed. At discharge patient will continue with Augmentin 250 mg 1 pill daily and doxycycline 100 mg 1 pill twice daily for 14 days. Patient will continue with oxygen to maintain sats above 90% . Patient will continue with hospice. 3. Patient with end-stage liver cirrhosis. Patient will continue with Xifaxan and Lactulose. 4. Patient with GERD and history of gastroparesis. Patient will continue with Protonix 40 mg 1 pill twice daily. 5. Patient with chronic renal disease. Patient will continue with Lasix. Patient will also continue with bicarbonate. 6. Advanced directives address with the patient in detail. Patient desires to be DNR. [id number] DNR will be in place. Patient will continue with hospice as requested by patient. Diet: Renal Activity: Fall precautions Time spent managing pt's care (in minutes): 55
[2017-09-30] MEDS: ENOXAPARIN 30 MG/0.3 ML SQ SCH (16:39)
[2017-09-30 18:13] VITALS: O2SAT 91
--- NOTE | 2017-09-30 20:17 | P.PN ---
Date of Service: 09/30/17 Vital Signs Temp Pulse Resp BP Pulse Ox 97.2 F 62 18 156/80 H 94 09/30/17 15:47 09/30/17 15:47 09/30/17 15:47 09/30/17 15:47 09/30/17 15:47 Assessment/ Plan: Nephrology. Feeling better. CPS stable without CP or SOB. No acute events overnight. Vitals, medications, blood work and imaging reviewed in the chart. General: Alert, Cooperative HEENT: Normocephalic, Mucous membr. moist/pink Neck: Supple Respiratory: Clear to auscultation bilaterally, Diminished Cardiovascular: Regular rate/rhythm, No rubs, Edema Gastrointestinal: Hypoactive, Soft and benign, Non-distended Musculoskeletal: No clubbing, No contractures Integumentary: No rashes, No cyanosis Neurological: Normal speech Blood work reviewed in the chart. Na 127; Cr 2.34 Imagings Data: EXAM DESCRIPTION: CT - Thorax Wo Con - 09/28/2017 8:57 pm CLINICAL HISTORY: sob COMPARISON: X-ray on the same date TECHNIQUE: Computed axial tomography of the chest was obtained. Contrast was not requested. All CT scans are performed using dose optimization technique as appropriate and may include automated exposure control or mA/KV adjustment according to patient size. FINDINGS: The evaluation of mediastinum, ervin and vessels is limited secondary to lack of IV contrast administration. A moderate to large right pleural effusion is present which is partially subpulmonic. A very small left pleural effusion is seen. Right lower lobe passive atelectasis is seen. Additional patchy alveolar opacities are present within the lungs bilaterally. A mild left lower lobe consolidation is seen. Calcified mediastinal and calcified hilar lymph nodes are present. A cirrhotic liver is visualized. Gallstones are present. A small amount of ascites is visualized within the upper abdomen IMPRESSION: Moderate to large right pleural effusion. Mild left lower lobe consolidation with patchy bilateral alveolar opacities probably representing pneumonia Conclusions/Impression: A/ EMY/ CKD III. Acidosis. Hyponatremia. DM II with CKD. HTN with CKD. Hypocalcemia. Anemia in chronic illness. Thrombocytopenia. Cirrhosis of the liver. RLL PNA. P/ Continue current POC and Medications. Consider thoracentesis for pleural effusion. Agree with abx. No NSAIDs. AM labs. Daily weight. Case discussed with Dr. Wynn. Plan to continue with hospice.
== END 2017-09-30 18:20 | disposition hospice, home (50) | DRG 194 ==
LOC: ER 17:17 → 4TH 20:47
PROVIDERS: ADMIT Internal Medicine; ATTEND Family Medicine
DX: J18.1 Lobar pneumonia, unspecified organism (principal); J90 Pleural effusion, not elsewhere classified; N17.9 Acute kidney failure, unspecified; E87.2 Acidosis; E87.1 Hypo-osmolality and hyponatremia; J98.11 Atelectasis; K74.60 Unspecified cirrhosis of liver; E11.22 Type 2 diabetes mellitus with diabetic chronic kidney disease; N18.3 Chronic kidney disease, stage 3 (moderate); I12.9 Hypertensive chronic kidney disease with stage 1 through stage 4 chronic kidney disease, or unspecified chronic kidney disease; E83.51 Hypocalcemia; D63.8 Anemia in other chronic diseases classified elsewhere; D69.6 Thrombocytopenia, unspecified; E87.5 Hyperkalemia
CPT/HCPCS: 36415; 71045; 71046; 71250; 80048; 82140; 83735; 84132; 84145; 85025; 87040; 93005; 93306; 94640; 94760; 96365; 99285; J1650; J2543; J7030